=== PATIENT | female | born 1985 | race African-American/Black ===

== ENCOUNTER 2016-10-28 21:35 | Emergency (ER) | payer OTHER ==
[~2016-10-28] VITALS: Ht 162.6 cm; Wt 74.8 kg
[~2016-10-28 21:35] MED LIST: HYDROCODON-ACE1 EA15 ORAL; IBUPROFEN400 MG ORAL; NEXAFED30 MG ORAL; NORCO 5-325 TA1 EACH ORAL; OCUFLOX5 ML OP; ZOFRAN ODT4 MG ORAL
--- NOTE | 2016-10-28 22:07 | Emergency Room Report ---
History of Present Illness General Chief Complaint: Abdominal Pain Source: Patient Present Illness HPI Is a 31-year-old female with a history also of colitis. She's is on sulfa drops for it. She presents with chief complaint abdominal bloating and vomiting. Onset today. Has pain localized the left flank. Denies any fever or chills. This occur after she try to eat some piece and it got stuck in her throat. She able to pull it out. She try drink a medicine and had vomiting. Since then she's been able to tolerate fluid. No diarrhea. No fever. Seen at the office and had blood work done. Did not see her doctor. No other complaint. Pain is 5/10. No urinary complaint. Allergies: Coded Allergies: No Known Allergies (Unverified , 07/23/16) Patient History Past Medical History: see triage record, old chart reviewed Past Surgical History: other Pertinent Family History: none Social History: Denies: smoking Last Menstrual Period: sep 30, 2016 Now: No Immunizations: other Reviewed Nursing Documentation: PMH: Agreed, PSxH: Agreed Nursing Documentation-PMH Past Medical History: No History, Except For Hx Gastrointestinal Problems: Yes - ulcerative colitis Review of Systems Eye: Denies: blurred vision, eye pain ENT: Denies: ear pain, nose congestion, throat swelling Respiratory: Denies: cough, shortness of breath Cardiovascular: Denies: chest pain, palpitations Gastrointestinal: Reports: abdominal pain, nausea, vomiting, Denies: diarrhea Musculoskeletal: Denies: back pain, joint pain Skin: Denies: rash Neurological: Denies: headache, numbness Endocrine: Denies: increased thirst, increased urine Hematologic/Lymphatic: Denies: easy bruising All Other Systems: negative except mentioned in HPI Physical Exam Vital Signs Date Time Temp Pulse Resp B/P Pulse Ox O2 Delivery O2 Flow Rate FiO2 10/28/16 21:40 98.2 83 15 128/91 98 Room Air vitals normal Sp02 EP Interpretation: reviewed, normal General Appearance: well appearing, no apparent distress, alert Head: normocephalic, atraumatic Eyes: bilateral eye EOMI, bilateral eye PERRL ENT: hearing grossly normal, normal pharynx Neck: full range of motion, supple, no meningismus Respiratory: chest non-tender, lungs clear, normal breath sounds Cardiovascular #1: regular rate, rhythm, no murmur Gastrointestinal: normal bowel sounds, non tender, no mass, no organomegaly, no bruit, non-distended Musculoskeletal: back normal, gait/station normal, normal range of motion Psychiatric: mood/affect normal Skin: warm/dry Medical Decision Making Diagnostic Impression: Primary Impression: Abdominal pain Qualified Codes: R10.32 - Left lower quadrant pain Additional Impression: Vomiting Qualified Codes: R11.2 - Nausea with vomiting, unspecified ER Course Present with abdominal pain. CT scan unremarkable. No evidence of infection. No evidence of UTI. No acute abdomen. Patient felt better now. We'll discharge home. CT/MRI/US Diagnostic Results CT/MRI/US Diagnostic Results : Imaging Test Ordered: CT abdomen and pelvis Impression Read by radiologist. No acute process. Last Vital Signs Date Time Temp Pulse Resp B/P Pulse Ox O2 Delivery O2 Flow Rate FiO2 10/28/16 21:40 98.2 83 15 128/91 98 Room Air Status: improved Disposition: HOME, SELF-CARE Condition: Stable Scripts Ondansetron (Zofran) 4 Mg Tablet 4 MG ORAL Q6H Y for Nausea & Vomiting, #20 TAB 0 Refills Prov: SALVADOR TEMPLETON M.D. 10/28/16 Referrals: Maddie DAMICO,REFERRING (PCP) Patient Instructions: Abdominal Pain, Adult Additional Instructions: Followup with your DrDanny in 7 days. Return if worse. SALVADOR TEMPLETON M.D. Oct 28, 2016 22:07
[2016-10-28 22:25] LABS: APPEARANCE,URINE CLEAR; KETONES,URINE NEGATIVE (NEGATIVE); LEUKOCYTE ESTERASE ,URINE NEGATIVE (NEGATIVE); NITRITE,URINE NEGATIVE (NEGATIVE); PH,URINE 6 (4.5-8.0); PROTEIN,URINE NEGATIVE (NEGATIVE); UROBILINOGEN,URINE NORMAL MG/DL (0.0-1.0)
[2016-10-28 22:34] LABS: BACTERIA,URINE FEW /HPF; SQUAMOUS EPITHELIAL CELL,UR FEW /LPF (NONE/OCC); WBC,URINE 0-2 /HPF (0 - 2)
[2016-10-28] MEDS ORDERED: ZOFRAN4 MG ORAL (23:12)
[2016-10-28 23:20] VITALS: BP_SYST 116; BP_SYST 128; BP_DIAS 78; BP_DIAS 91
--- NOTE | 2016-10-29 09:12 | Diagnostic Imaging Report ---
Indication: Abdominal pain, history of ulcerative colitis, nausea, vomiting, diarrhea Technique: Spiral acquisitions obtained through the abdomen and pelvis. No oral contrast utilized, per emergency room physician request No IV contrast utilized, per referring physician request.. Multiplanar reconstructions were generated. Total dose length product 895 mGycm. CTDIvol(s) 17 mGy Comparison: None Findings: Normal appendix. No evidence of diverticulosis or diverticulitis. No small bowel distention. No free or loculated intraperitoneal air or fluid. Distal esophagus, stomach, duodenum are unremarkable. There is a tiny umbilical hernia which contain only fat, and adjacent small ventral hernia which also contains only fat Lack of IV contrast limits assessment of the solid organs. The gallbladder is nondistended. The bilateral unremarkable. The liver, pancreas, spleen, adrenals, kidneys are all unremarkable. There is an accessory splenule incidentally noted. Abundant prominent lymph nodes are seen throughout the mesentery. No retroperitoneal mass or adenopathy. No pelvic mass or adenopathy. The included lung bases are clear. The bones are unremarkable except for degenerative changes of bilateral sacroiliac joints. Impression: Nonspecific prominent mesenteric lymph nodes Incidental finding of small fat-containing ventral and umbilical hernias Minimal bilateral sacroiliac degenerative change No acute process This agrees with the preliminary interpretation provided overnight by [facility] service. The CT scanner at [facility] is accredited by the [employer] and the scans are performed using protocols designed to limit radiation exposure to as low as reasonably achievable to attain images of sufficient resolution adequate for diagnostic evaluation.
== END 2016-10-28 23:20 | disposition home or self-care (01) ==
LOC: EMR 21:56
DX: R10.32 Left lower quadrant pain (principal); R11.2 Nausea with vomiting, unspecified; Z87.19 Personal history of other diseases of the digestive system
CPT/HCPCS: 74176; 81003; 81025; 99284

== ENCOUNTER 2016-11-17 22:34 | Emergency (ER) | payer SELFPAY ==
[~2016-11-17] VITALS: Ht 170.2 cm; Wt 93.0 kg
[~2016-11-17 22:34] MED LIST changes: +ZOFRAN4 MG ORAL
[2016-11-17 23:00] VITALS: BP 144/90
[2016-11-17] MEDS ORDERED: FLONASE ALLERG9.9 ML NS (23:14)
[2016-11-17] MEDS ORDERED: ALBUTEROL SULF8.5 GM INH (23:14)
--- NOTE | 2016-11-17 23:14 | Emergency Room Report ---
History of Present Illness General Chief Complaint: Upper Respiratory Illness Source: Patient Present Illness HPI This is a 31-year-old female with a history ulcerative colitis. She presents with chief complaint of puncture of breath and congested. Onset for last to 3 weeks. Denies any fever chills denies any nausea vomiting. Worse with talking. Worse with lying flat. No chest pain. No nausea no vomiting. She is very congested. [id number]-mvo-utifolv medicine not helping. No other complaint. Allergies: Coded Allergies: No Known Allergies (Unverified , 07/23/16) Patient History Past Medical History: see triage record, old chart reviewed Past Surgical History: other Pertinent Family History: none Social History: Denies: smoking Last Menstrual Period: Oct Now: No Immunizations: other Reviewed Nursing Documentation: PMH: Agreed, PSxH: Agreed Nursing Documentation-PMH Hx Gastrointestinal Problems: Yes - ulcerative colitis Review of Systems Eye: Denies: blurred vision, eye pain ENT: Denies: ear pain, nose congestion, throat swelling Respiratory: Reports: cough, shortness of breath Cardiovascular: Denies: chest pain, palpitations Gastrointestinal: Denies: abdominal pain, diarrhea, nausea, vomiting Musculoskeletal: Denies: back pain, joint pain Skin: Denies: rash Neurological: Denies: headache, numbness Endocrine: Denies: increased thirst, increased urine Hematologic/Lymphatic: Denies: easy bruising All Other Systems: negative except mentioned in HPI Physical Exam Vital Signs Date Time Temp Pulse Resp B/P Pulse Ox O2 Delivery O2 Flow Rate FiO2 11/17/16 22:52 98.6 78 18 144/90 99 Room Air vitals with htn Sp02 EP Interpretation: reviewed, normal General Appearance: well appearing, no apparent distress, alert Head: normocephalic, atraumatic Eyes: bilateral eye EOMI, bilateral eye PERRL ENT: hearing grossly normal, normal pharynx, nasal congestion Neck: full range of motion, supple, no meningismus Respiratory: chest non-tender, lungs clear, normal breath sounds Cardiovascular #1: regular rate, rhythm, no murmur Gastrointestinal: normal bowel sounds, non tender, no mass, no organomegaly, no bruit, non-distended Musculoskeletal: back normal, gait/station normal, normal range of motion Neurologic: alert, oriented x3 Psychiatric: mood/affect normal Skin: warm/dry Medical Decision Making Diagnostic Impression: Primary Impression: Upper respiratory symptom Additional Impression: Rhinitis Qualified Codes: J31.0 - Chronic rhinitis ER Course Patient presents with upper respiratory infection with congestion. This could be allergy mediated. Most likely viral. I see no evidence of ACS, PE, dissection. She's comfortable otherwise. Could be sleep apnea. We'll discharge home. Chest X-Ray Diagnostic Results EP Interpretation: Yes Findings: no consolidation, no effusion, no pneumothorax, no acute cardiopulmonary disease Number of Views: 1 Last Vital Signs Date Time Temp Pulse Resp B/P Pulse Ox O2 Delivery O2 Flow Rate FiO2 11/17/16 22:52 98.6 78 18 144/90 99 Room Air Status: improved Disposition: HOME, SELF-CARE Condition: Stable Scripts Fluticasone Propionate (Flonase Allergy Relief) 9.9 Ml Girdler.susp 9.9 ML NS BID, #1 UNIT Prov: SALVADOR TEMPLETON M.D. 11/17/16 Albuterol Sulfate* (ALBUTEROL SULFATE MDI*) 8.5 Gm Hfa.aer.ad 2 PUFF INH Q4H Y for cough/wheezing, #1 EA 0 Refills Prov: SALVADOR TEMPLETON M.D. 11/17/16 Referrals: Maddie DAMICO,REFERRING (PCP) Patient Instructions: Upper Respiratory Infection, Adult Additional Instructions: Followup with your DrDanny in 2-3 days. Return if symptom worsen. SALVADOR TEMPLETON M.D. Nov 17, 2016 23:14
[2016-11-17 23:30] VITALS: BP 148/95
--- NOTE | 2016-11-18 13:46 | Diagnostic Imaging Report ---
Indication: SOB Technique: One view of the chest Comparison: none Findings: Lungs and pleural spaces are clear. Heart size is normal. Impression: No acute process
== END 2016-11-17 23:30 | disposition home or self-care (01) ==
LOC: EMR 23:05
DX: J06.9 Acute upper respiratory infection, unspecified (principal); J31.0 Chronic rhinitis
CPT/HCPCS: 71010; 99284

== ENCOUNTER 2017-01-23 13:43 | Emergency (ER) | payer SELFPAY ==
[~2017-01-23] VITALS: Ht 170.2 cm; Wt 93.0 kg
[~2017-01-23 13:43] MED LIST changes: +ALBUTEROL SULF8.5 GM INH; +FLONASE ALLERG9.9 ML NS
[2017-01-23 13:47] VITALS: BP 126/87
--- NOTE | 2017-01-23 14:19 | Emergency Room Report ---
History of Present Illness General Chief Complaint: Abdominal Pain Source: Patient Present Illness HPI 31 y/o female c/o periumbilical pain x 1 day. States pain is 7/10 and worse with movement. Assoc sxs include bloating that improves with passing gas. Patient has hx of ulcerative colitis with colonic polyps with last colonoscopy being 3 years ago and abnormal (polyps removed). Is supposed to be taking sulfasalazine but states she doesn't like it so she doesn't take it. Last BM was 1 hour ago. States she normally has 5x BM daily. States she took APAP earlier with mild relief. Denies food as a modifying factor. States she has poor compliance with dietary considerations with her colitis as she is drinking her [employer]bucks coffee stating she drinks caffeine and has unmonitored uncontrolled diet. States 2 weeks ago she had an episode of GI bleeding for 1 day that resolved. Denies any current n/v/f/c/d, dysuria, back pain, neck pain , photophobia, phonophobia, CP, SOB or headache. Additionally, patient complains of right shoulder muscular pain. States she had to lift her grandfather who was stuck in the garage at home. States she has right shoulder muscle tension that is worse with movement and better with heat, massage and rest. No other modifying factors or physical complaints. Patient denies any numbness, tingling, pressure, paralysis, cyanosis, bruising, loss of sensation, or loss of range of motion. Allergies: Coded Allergies: No Known Allergies (Unverified , 07/23/16) Patient History Past Medical History: see triage record Pertinent Family History: none Last Menstrual Period: 5-5 Now: No Immunizations: UTD Reviewed Nursing Documentation: PMH: Agreed, PSxH: Agreed Nursing Documentation-PMH Past Medical History: No History, Except For Hx Gastrointestinal Problems: Yes - ulcerative colitis Review of Systems All Other Systems: negative except mentioned in HPI Physical Exam Vital Signs Date Time Temp Pulse Resp B/P Pulse Ox O2 Delivery O2 Flow Rate FiO2 01/23/17 13:47 98.4 110 18 126/87 98 Room Air Medical Decision Making PA Attestation Dr. Castellano is my supervising physician with whom patient management has been discussed with. Diagnostic Impression: Primary Impression: Abdominal pain Qualified Codes: R10.33 - Periumbilical pain Additional Impressions: UTI (urinary tract infection) Qualified Codes: N30.00 - Acute cystitis without hematuria Right shoulder strain Qualified Codes: S46.911A - Strain of unspecified muscle, fascia and tendon at shoulder and upper arm level, right arm, initial encounter ER Course Pt. presents to the ED c/o abdominal pain. Ddx considered but are not limited to viral syndrome, , appendicitis, diverticulitis, constipation, gastroenteritis, abdominal hernia, pancreatitis, cholecystitis, nephrolithiasis, and ovarian torsion. Vital signs: are WNL, pt. is afebrile H&PE are most consistent with non-specific abd pain with UTI and Right shoulder strain ORDERS: CBC, CMP, UA, Preg, XR Abd, Lipase ED INTERVENTIONS: none required at this time. DISCHARGE: At this time pt. is stable for d/c to home. Will provide printed patient care instructions, and any necessary prescriptions. Care plan and follow up instructions have been discussed with the patient prior to discharge. Laboratory Tests Test 01/23/17 14:25 White Blood Count 4.8 K/UL (4.8-10.8) Red Blood Count 4.91 M/UL (4.20-5.40) Hemoglobin 12.2 G/DL (12.0-16.0) Hematocrit 39.2 % (37.0-47.0) Mean Corpuscular Volume 80 FL (80-99) Mean Corpuscular Hemoglobin 24.8 PG (27.0-31.0) L Mean Corpuscular Hemoglobin Concent 31.1 G/DL (32.0-36.0) L Red Cell Distribution Width 13.3 % (11.6-14.8) Platelet Count 367 K/UL (150-450) Mean Platelet Volume 6.3 FL (6.5-10.1) L Neutrophils (%) (Auto) 35.6 % (45.0-75.0) L Lymphocytes (%) (Auto) 48.7 % (20.0-45.0) H Monocytes (%) (Auto) 11.8 % (1.0-10.0) H Eosinophils (%) (Auto) 2.3 % (0.0-3.0) Basophils (%) (Auto) 1.6 % (0.0-2.0) Urine Color Yellow Urine Appearance Slightly cloudy Urine pH 6.5 (4.5-8.0) Urine Specific [place] 1.010 (1.005-1.035) Urine Protein Negative (NEGATIVE) Urine Glucose (UA) Negative (NEGATIVE) Urine Ketones Negative (NEGATIVE) Urine Occult Blood 1+ (NEGATIVE) H Urine Nitrite Negative (NEGATIVE) Urine Bilirubin Negative (NEGATIVE) Urine Urobilinogen Normal MG/DL (0.0-1.0) Urine Leukocyte Esterase 1+ (NEGATIVE) H Urine RBC 2-4 /HPF (0 - 2) H Urine WBC 5-10 /HPF (0 - 2) H Urine Squamous Epithelial Cells Many /LPF (NONE/OCC) H Urine Bacteria Moderate /HPF (NONE) H Urine HCG, Qualitative Negative Sodium Level 137 mEQ/L (135-145) Potassium Level 4.3 mEQ/L (3.4-4.9) Chloride Level 97 mEQ/L (98-107) L Carbon Dioxide Level 24 mEQ/L (20-30) Anion Gap 16 (5-15) H Blood Urea Nitrogen 7 mg/dL (7-23) Creatinine 0.7 mg/dL (0.5-0.9) Estimate Glomerular Filtration Rate > 60 mL/min (>60) Glucose Level 99 mg/dL (74-106) Calcium Level 9.3 mg/dL (8.6-10.2) Total Bilirubin 0.3 mg/dL (0.0-1.2) Aspartate Amino Transferase (AST) 20 U/L (5-40) Alanine Aminotransferase (ALT) 15 U/L (3-33) Alkaline Phosphatase 73 U/L (35-104) Total Protein 7.7 g/dL (6.6-8.7) Albumin 3.9 g/dL (3.5-5.2) Globulin 3.8 g/dL Albumin/Globulin Ratio 1.0 (1.0-2.7) Lipase 22 U/L (< 60) Other X-Ray Diagnostic Results Other X-Ray Diagnostic Results : X-Ray Ordered: XR Abd Date: January 23, 2017 EP Interpretation: Yes Number of Views: 3 Other Impression No acute abnormality. Non-specific bowel gas pattern. No free air noted. Last Vital Signs Date Time Temp Pulse Resp B/P Pulse Ox O2 Delivery O2 Flow Rate FiO2 01/23/17 16:01 98.4 110 18 126/87 98 Room Air Disposition: HOME, SELF-CARE Condition: Stable Scripts Methocarbamol* (METHOCARBAMOL*) 750 Mg Tablet 750 MG ORAL THREE TIMES A DAY Y for For Pain, #30 TAB Prov: MARY ARTEAGA.A. 01/23/17 Metronidazole* (FLAGYL*) 500 Mg Tablet 500 MG ORAL THREE TIMES A DAY, #15 TAB 0 Refills Prov: MARY ARTEAGA P.A. 01/23/17 Ciprofloxacin Hcl* (CIPROFLOXACIN HCL*) 500 Mg Tablet 500 MG ORAL EVERY 12 HOURS for 5 Days, #10 TAB 0 Refills Prov: MARY ARTEAGA P.A. 01/23/17 Patient Instructions: Abdominal Pain, Adult, Generic Shoulder Exercises- SportsMed, Urinary Tract Infection Additional Instructions: Take medication as directed. Patient instructed to stay well hydrated and to use a liquid diet and then progress to soft bland diet as tolerated before reverting back to a regular diet. Patient Education was given to the patient. Patient advised if irreretractible pain, rectal bleeding, or no BM to go to ER immediately. Advised patient to use RICE therapy and avoid exercises for the next 2-3 weeks to help rest the leg. Patient instructed to massage the muscles that are tight or tense, put ice for 5-7 minutes or a frozen bag of peas or cold gel pack on the area for 20 minutes at a time, a few times a day, put heat on the area to reduce pain and stiffness by either taking a hot shower or hot bath, or put a hot towel on the area for no more than 20 minutes at a time. Patient instructed to not use anything too hot that could burn your skin. MARY ARTEAGA January 23, 2017 14:19
[2017-01-23 14:47] LABS: BASOPHILS % (AUTO) 1.6 % (0.0-2.0); EOSINOPHILS % (AUTO) 2.3 % (0.0-3.0); LYMPHOCYTES % (AUTO) 48.7 % (20.0-45.0); MEAN CORPUSCULAR HEMOGLOBIN 24.8 PG (27.0-31.0); MEAN CORPUSCULAR HGB CONC 31.1 G/DL (32.0-36.0); MEAN CORPUSCULAR VOLUME 80 FL (80-99); MEAN PLATELET VOLUME 6.3 FL (6.5-10.1); MONOCYTES % (AUTO) 11.8 % (1.0-10.0); NEUTROPHILS % (AUTO) 35.6 % (45.0-75.0); PLATELET COUNT 367 K/UL (150-450); RED BLOOD COUNT 4.91 M/UL (4.20-5.40); RED CELL DISTRIBUTION WIDTH 13.3 % (11.6-14.8); WHITE BLOOD COUNT 4.8 K/UL (4.8-10.8)
[2017-01-23 14:51] LABS: KETONES,URINE NEGATIVE (NEGATIVE); LEUKOCYTE ESTERASE ,URINE 1+ (NEGATIVE); NITRITE,URINE NEGATIVE (NEGATIVE); PH,URINE 6.5 (4.5-8.0); PROTEIN,URINE NEGATIVE (NEGATIVE); UROBILINOGEN,URINE NORMAL MG/DL (0.0-1.0)
[2017-01-23 15:09] LABS: APPEARANCE,URINE SLIGHTLY CLOUDY; BACTERIA,URINE MODERATE /HPF; SQUAMOUS EPITHELIAL CELL,UR MANY /LPF (NONE/OCC)
[2017-01-23 15:11] LABS: ALANINE AMINOTRANSFERASE 15 U/L (3-33); ANION GAP 16 (5-15); ASPARTATE AMINO TRANSFERASE 20 U/L (5-40); CALCIUM 9.3 mg/dL (8.6-10.2); CARBON DIOXIDE 24 mEQ/L (20-30); CHLORIDE 97 mEQ/L (98-107); CREATININE 0.7 mg/dL (0.5-0.9); GLOMERULAR FILTRATION RATE > 60 mL/min (>60); HEMOLYSIS 28; LIPASE 22 U/L (< 60); POTASSIUM 4.3 mEQ/L (3.4-4.9); SODIUM 137 mEQ/L (135-145); TOTAL PROTEIN 7.7 g/dL (6.6-8.7)
[2017-01-23 15:12] LABS: BACTERIA,URINE MODERATE /HPF; SQUAMOUS EPITHELIAL CELL,UR MANY /LPF (NONE/OCC)
[2017-01-23] MEDS ORDERED: METHOCARBAMOL750 MG ORAL (15:41)
[2017-01-23] MEDS ORDERED: CIPROFLOXACIN500 M2 ORAL (15:41)
[2017-01-23] MEDS ORDERED: METRONIDAZOLE500 MG ORAL (15:41)
[2017-01-23 16:01] VITALS: BP 126/87
--- NOTE | 2017-01-24 11:06 | Diagnostic Imaging Report ---
Indication: Abdominal pain Comparison: None Single view of the abdomen obtained Findings: Bowel gas pattern is nonspecific. There is contrast within the colon and small bowel presumably for CT. The bones are unremarkable. No ectopic calcifications of concern identified. Impression: No acute findings.
== END 2017-01-23 16:01 | disposition home or self-care (01) ==
LOC: EMR 14:20
DX: R10.33 Periumbilical pain (principal); N30.00 Acute cystitis without hematuria; S46.911A Strain of unspecified muscle, fascia and tendon at shoulder and upper arm level, right arm, initial encounter; Z86.010 Personal history of colon polyps; X50.0XXA Overexertion from strenuous movement or load, initial encounter; Y93.9 Activity, unspecified; Y92.9 Unspecified place or not applicable
CPT/HCPCS: 36415; 74020; 80053; 81003; 81025; 83690; 85025; 87086; 99284

== ENCOUNTER 2017-02-21 20:54 | Emergency (ER) | payer SELFPAY ==
[~2017-02-21] VITALS: Ht 170.2 cm; Wt 88.5 kg
[~2017-02-21 20:54] MED LIST changes: +CIPROFLOXACIN500 M2 ORAL; +METHOCARBAMOL750 MG ORAL; +METRONIDAZOLE500 MG ORAL
[2017-02-21 21:25] VITALS: BP 123/87
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
[2017-02-21] MEDS ORDERED: IBUPROFEN600 MG ORAL (21:50)
[2017-02-21 21:57] VITALS: BP 123/87
== END 2017-02-21 21:57 | disposition home or self-care (01) ==
LOC: EMR 21:30
DX: M79.605 Pain in left leg (principal); M25.562 Pain in left knee; M25.512 Pain in left shoulder
CPT/HCPCS: 99283

== ENCOUNTER 2017-04-15 16:41 | Emergency (ER) | payer OTHER ==
[~2017-04-15] VITALS: Ht 170.2 cm; Wt 93.0 kg
[~2017-04-15 16:41] MED LIST changes: +IBUPROFEN600 MG ORAL
[2017-04-15] MEDS ORDERED: BACITRACIN ZIN1 EACH TOPIC (16:59)
[2017-04-15] MEDS ORDERED: Bacitracin Oint UD TOPIC ONE (17:00)
[2017-04-15 17:39] VITALS: BP 134/85
[2017-04-15 17:42] VITALS: BP 134/85
--- NOTE | 2017-04-15 21:57 | Emergency Room Report ---
History of Present Illness General Chief Complaint: Skin Rash/Abscess Source: Patient Present Illness HPI Patient is a 31-year-old female who presented after having increased pain to the jerome cleft area. The patient had prior history of ulcer colitis. She been taking oral medications for that. The patient reported having increased pain to the buttock area. She denied any fever. She denied any bloody stools. Allergies: Coded Allergies: No Known Allergies (Unverified , 02/21/17) Patient History Past Medical History: see triage record Last Menstrual Period: 7-13 Now: No Reviewed Nursing Documentation: PMH: Agreed, PSxH: Agreed Nursing Documentation-PMH Past Medical History: No History, Except For Hx Gastrointestinal Problems: Yes - ulcerative colitis Review of Systems All Other Systems: negative except mentioned in HPI Physical Exam Vital Signs Date Time Temp Pulse Resp B/P Pulse Ox O2 Delivery O2 Flow Rate FiO2 04/15/17 16:43 98.1 79 18 134/85 98 Room Air Sp02 EP Interpretation: reviewed, normal General Appearance: normal inspection, well appearing, no apparent distress, alert, GCS 15 Head: atraumatic ENT: normal ENT inspection, hearing grossly normal, normal voice Neck: normal inspection, full range of motion, supple, no bony tend Respiratory: normal inspection, lungs clear, normal breath sounds, no respiratory distress, no retraction, no wheezing Cardiovascular #1: regular rate, rhythm, no edema Gastrointestinal: normal inspection, normal bowel sounds, non tender, soft, no guarding, no hernia Genitourinary: no CVA tenderness Musculoskeletal: normal inspection, back normal, normal range of motion Neurologic: normal inspection, alert, oriented x3, responsive, pc tech III-XII nml as tested, speech normal Psychiatric: normal inspection, judgement/insight normal, mood/affect normal Skin: normal inspection, normal color, no rash Medical Decision Making Diagnostic Impression: Primary Impression: Skin ulcer ER Course Patient presented for skin ulcer. Differential diagnosis included wasn't limited to abrasion, contusion, contact dermatitis, pilonidal cyst, among others. Patient's benign exam and does not appear to require any further imaging or laboratory testing at this time. The patient is advised to follow up with primary care doctor in 1-2 days. Patient is advised to return if any worsening condition or if any changes in status that are concerning. Last Vital Signs Date Time Temp Pulse Resp B/P Pulse Ox O2 Delivery O2 Flow Rate FiO2 04/15/17 17:42 98.1 69 18 134/85 98 Room Air Status: improved Disposition: HOME, SELF-CARE Condition: Stable Scripts Bacitracin Zinc* (BACITRACIN ZINC*) 1 Each Packet 1 APPLIC TOPIC THREE TIMES A DAY, #20 PACKET Prov: Carrington Decker 04/15/17 Referrals: NON PHYSICIAN (PCP) Patient Instructions: Skin Ulcer Carrington Decker Apr 15, 2017 21:57
== END 2017-04-15 17:43 | disposition home or self-care (01) ==
LOC: EMR 17:11
DX: L98.419 Non-pressure chronic ulcer of buttock with unspecified severity (principal)
CPT/HCPCS: 99283

== ENCOUNTER 2017-04-27 21:00 | Emergency (ER) | payer SELFPAY ==
[~2017-04-27] VITALS: Ht 170.2 cm; Wt 93.0 kg
[~2017-04-27 21:00] MED LIST changes: +BACITRACIN ZIN1 EACH TOPIC
[2017-04-27] MEDS ORDERED: SULFASALAZINE500 MG ORAL (21:13)
[2017-04-27] MEDS ORDERED: Solu-MEDROL 125mg Inj IVP ONE (21:30)
[2017-04-27] MEDS ORDERED: Famotidine 20 MG/ 2ML VIAL IVP ONE (21:30)
--- NOTE | 2017-04-27 21:31 | Emergency Room Report ---
History of Present Illness General Chief Complaint: Diarrhea Source: Patient Present Illness HPI Patient presents with 5 days of nausea vomiting. Today she has some dizziness. Yesterday she passed some black stool. She has a history of ulcerative colitis. The stools are loose and now brown in color. The dizziness is more feeling that she's weak and about to pass out. It was worse today. In addition she has left ear pain and a slight sore throat. There is no cough or chest pain. Her last period was on the and normal. No fevers or chills. She's had black stools when she's had bleeding in the past. It's been quite a while since her ulcerative colitis was active. It's usually treated with steroids. She has rheumatoid arthritis. She was seen here 04/15 for possible skin ulcer. Prescribed local treatment. Not complaining of this at this time. Allergies: Coded Allergies: No Known Allergies (Unverified , 02/21/17) Patient History Past Medical History: see triage record Social History Narrative she drove herself here Last Menstrual Period: 04/01/17 Now: No : 1 Para: 0 Reviewed Nursing Documentation: PMH: Agreed, PSxH: Agreed Nursing Documentation-PMH Hx Gastrointestinal Problems: Yes - ulcerative colitis Review of Systems All Other Systems: negative except mentioned in HPI Physical Exam Vital Signs Date Time Temp Pulse Resp B/P Pulse Ox O2 Delivery O2 Flow Rate FiO2 04/27/17 21:09 99.0 78 14 127/82 98 Room Air Sp02 EP Interpretation: reviewed, normal General Appearance: well appearing, no apparent distress, GCS 15 Head: normocephalic Eyes: bilateral eye normal inspection ENT: moist mucus membranes Neck: supple Respiratory: lungs clear, normal breath sounds Cardiovascular #1: regular rate, rhythm Cardiovascular #2: 2+ radial (R) Gastrointestinal: normal inspection, normal bowel sounds, no mass, non- distended, no guarding, no rebound, tenderness - minimal epigastric Musculoskeletal: back normal, gait/station normal, normal range of motion Neurologic: alert, oriented x3, grossly normal Psychiatric: mood/affect normal Skin: normal inspection, warm/dry Medical Decision Making Diagnostic Impression: Primary Impression: Vomiting Qualified Codes: R11.2 - Nausea with vomiting, unspecified Additional Impressions: Abdominal pain Qualified Codes: R10.13 - Epigastric pain Viral syndrome History of ulcerative colitis ER Course Patient presents with abdominal discomfort dizziness upper respiratory symptoms and vomiting with some black stool yesterday. Differential includes ulcerative colitis, gastroenteritis, viral syndrome diverticulitis amongst others. The abdomen is fairly soft at this time. Evaluation will be with labs, urinalysis, urine . Also abdominal films will be taken. The patient will receive IV hydration, Zofran and Pepcid. In addition because of the possibility is being related to ulcerative colitis methylprednisolone will be used. This might also help with the feelings in her upper respiratory tract infection. Patient labs are unremarkable. She still feels burning in her epigastric and also up in her throat. Is also causing nausea. Reglan, Benadryl and Mylanta given. Patient feels much better after the last medication. I discussed with her about whether she felt that she should be on prednisone at this time. She felt this was not indicated. She wants symptomatic treatment. Also she states she wants to follow up with her doctor. Patient stable for outpatient observation and treatment. Laboratory Tests Test 04/27/17 21:49 04/27/17 23:10 White Blood Count 6.5 K/UL (4.8-10.8) Red Blood Count 4.44 M/UL (4.20-5.40) Hemoglobin 11.8 G/DL (12.0-16.0) L Hematocrit 36.6 % (37.0-47.0) L Mean Corpuscular Volume 82 FL (80-99) Mean Corpuscular Hemoglobin 26.5 PG (27.0-31.0) L Mean Corpuscular Hemoglobin Concent 32.1 G/DL (32.0-36.0) Red Cell Distribution Width 13.5 % (11.6-14.8) Platelet Count 332 K/UL (150-450) Mean Platelet Volume 6.2 FL (6.5-10.1) L Neutrophils (%) (Auto) 47.5 % (45.0-75.0) Lymphocytes (%) (Auto) 42.4 % (20.0-45.0) Monocytes (%) (Auto) 6.7 % (1.0-10.0) Eosinophils (%) (Auto) 1.1 % (0.0-3.0) Basophils (%) (Auto) 2.3 % (0.0-2.0) H Prothrombin Time 10.2 SEC (9.30-11.50) Prothrombin Time INR 1.0 (0.9-1.1) PTT 27 SEC (23-33) Sodium Level 138 mEQ/L (135-145) Potassium Level 3.8 mEQ/L (3.4-4.9) Chloride Level 100 mEQ/L (98-107) Carbon Dioxide Level 26 mEQ/L (20-30) Anion Gap 12 (5-15) Blood Urea Nitrogen 8 mg/dL (7-23) Creatinine 0.8 mg/dL (0.5-0.9) Estimate Glomerular Filtration Rate > 60 mL/min (>60) Glucose Level 105 mg/dL (74-106) Calcium Level 11.3 mg/dL (8.6-10.2) H Total Bilirubin 0.2 mg/dL (0.0-1.2) Aspartate Amino Transferase (AST) 14 U/L (5-40) Alanine Aminotransferase (ALT) 12 U/L (3-33) Alkaline Phosphatase 73 U/L (35-104) Total Protein 7.8 g/dL (6.6-8.7) Albumin 4.3 g/dL (3.5-5.2) Globulin 3.5 g/dL Albumin/Globulin Ratio 1.2 (1.0-2.7) Lipase 18 U/L (< 60) Urine Color Yellow Urine Appearance Clear Urine pH 6 (4.5-8.0) Urine Specific Harrells 1.020 (1.005-1.035) Urine Protein Negative (NEGATIVE) Urine Glucose (UA) Negative (NEGATIVE) Urine Ketones 1+ (NEGATIVE) H Urine Occult Blood 2+ (NEGATIVE) H Urine Nitrite Negative (NEGATIVE) Urine Bilirubin Negative (NEGATIVE) Urine Urobilinogen 1 MG/DL (0.0-1.0) H Urine Leukocyte Esterase 1+ (NEGATIVE) H Urine RBC 2-4 /HPF (0 - 2) H Urine WBC 0-2 /HPF (0 - 2) Urine Squamous Epithelial Cells Moderate /LPF (NONE/OCC) H Urine Bacteria None /HPF (NONE) Urine HCG, Qualitative Negative Other X-Ray Diagnostic Results Other X-Ray Diagnostic Results : X-Ray ordered: abd # of Views/Limited Vs Complete: 1 View Indication: Pain EP Interpretation: Yes Interpretation: nonspecific bowel gas, no sbo, other - no masses Impression: No acute disease Interpreting ER Provider: signed Jarad Ferris MD Last Vital Signs Date Time Temp Pulse Resp B/P Pulse Ox O2 Delivery O2 Flow Rate FiO2 04/28/17 01:46 60 18 120/80 100 Room Air 04/28/17 01:46 98.9 Status: improved Disposition: HOME, SELF-CARE Condition: Improved Scripts Famotidine (PEPCID) 20 Mg Tablet 20 MG ORAL DAILY, #20 TAB 1 Refill Prov: Jarad Ferris M.D. 04/28/17 Ondansetron Odt* (ZOFRAN ODT*) 4 Mg Tab.rapdis 4 MG ORAL Q8H Y for Nausea & Vomiting, #6 TAB 1 Refill Prov: Jarad Ferris M.D. 04/28/17 Jarad Ferris M.D. Apr 27, 2017 21:31
[2017-04-27 22:22] LABS: BASOPHILS % (AUTO) 2.3 % (0.0-2.0); EOSINOPHILS % (AUTO) 1.1 % (0.0-3.0); LYMPHOCYTES % (AUTO) 42.4 % (20.0-45.0); MEAN CORPUSCULAR HEMOGLOBIN 26.5 PG (27.0-31.0); MEAN CORPUSCULAR HGB CONC 32.1 G/DL (32.0-36.0); MEAN CORPUSCULAR VOLUME 82 FL (80-99); MEAN PLATELET VOLUME 6.2 FL (6.5-10.1); MONOCYTES % (AUTO) 6.7 % (1.0-10.0); NEUTROPHILS % (AUTO) 47.5 % (45.0-75.0); PLATELET COUNT 332 K/UL (150-450); RED BLOOD COUNT 4.44 M/UL (4.20-5.40); RED CELL DISTRIBUTION WIDTH 13.5 % (11.6-14.8); WHITE BLOOD COUNT 6.5 K/UL (4.8-10.8)
[2017-04-27 22:32] LABS: ALANINE AMINOTRANSFERASE 12 U/L (3-33); ALBUMIN/GLOBULIN RATIO 1.2 (1.0-2.7); ANION GAP 12 (5-15); ASPARTATE AMINO TRANSFERASE 14 U/L (5-40); CALCIUM 11.3 mg/dL (8.6-10.2); CARBON DIOXIDE 26 mEQ/L (20-30); CHLORIDE 100 mEQ/L (98-107); CREATININE 0.8 mg/dL (0.5-0.9); GLOMERULAR FILTRATION RATE > 60 mL/min (>60); HEMOLYSIS 6; LIPASE 18 U/L (< 60); POTASSIUM 3.8 mEQ/L (3.4-4.9); PROTHROMBIN TIME 10.2 SEC (9.30-11.50); SODIUM 138 mEQ/L (135-145); TOTAL PROTEIN 7.8 g/dL (6.6-8.7)
[2017-04-27 23:20] LABS: APPEARANCE,URINE CLEAR; KETONES,URINE 1+ (NEGATIVE); LEUKOCYTE ESTERASE ,URINE 1+ (NEGATIVE); NITRITE,URINE NEGATIVE (NEGATIVE); PH,URINE 6 (4.5-8.0); PROTEIN,URINE NEGATIVE (NEGATIVE); UROBILINOGEN,URINE 1 MG/DL (0.0-1.0)
[2017-04-27 23:28] LABS: SQUAMOUS EPITHELIAL CELL,UR MODERATE /LPF (NONE/OCC); WBC,URINE 0-2 /HPF (0 - 2)
[2017-04-27 23:29] VITALS: BP 122/89
[2017-04-28] MEDS ORDERED: DiphenhydrAMINE 50mg/ml Inj IVP ONE (00:15)
[2017-04-28] MEDS ORDERED: Mylanta II UD 30ml ORAL ONE (00:15)
[2017-04-28] MEDS ORDERED: Metoclopramide 10mg/2ml Inj IVP ONE (00:15)
[2017-04-28] MEDS ORDERED: ZOFRAN ODT4 MG ORAL (01:10)
[2017-04-28] MEDS ORDERED: PEPCID20 MG ORAL (01:10)
[2017-04-28 01:46] VITALS: BP 120/80
--- NOTE | 2017-04-28 09:03 | Diagnostic Imaging Report ---
Indications: Abdominal pain. Technique: AP view of the abdomen Findings: Comparison: 01/23/17. Bowel gas pattern is unremarkable. No abnormal calcific or soft tissue densities are demonstrated. 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 Visualized skeletal structures are otherwise unremarkable. IMPRESSION: No evidence of acute abdominopelvic disease, unchanged Stable apparent chronic low changes as described. These may to some degree be artifactual due to positioning
== END 2017-04-28 01:49 | disposition home or self-care (01) ==
LOC: EMR 21:28
DX: R11.2 Nausea with vomiting, unspecified (principal); R10.9 Unspecified abdominal pain; R42 Dizziness and giddiness; Z87.19 Personal history of other diseases of the digestive system; M06.9 Rheumatoid arthritis, unspecified
CPT/HCPCS: 36415; 74000; 80053; 81003; 81025; 83690; 85025; 85610; 85730; 96360; 96361; 96374; 96375; 99284; J1200; J2405; J2765; J2930; S0028

== ENCOUNTER 2017-07-21 18:43 | Emergency (ER) | payer SELFPAY ==
[~2017-07-21] VITALS: Ht 170.2 cm; Wt 93.0 kg
[~2017-07-21 18:43] MED LIST changes: +PEPCID20 MG ORAL; +SULFASALAZINE500 MG ORAL
[2017-07-21 19:07] VITALS: BP 126/87
[2017-07-21] MEDS ORDERED: AMOXICILLIN500 MG ORAL (19:34)
[2017-07-21] MEDS ORDERED: PREDNISONE20 MG ORAL (19:34)
[2017-07-21] MEDS ORDERED: PROMETHAZI6.25 MG/1 ORAL (19:34)
[2017-07-21] MEDS ORDERED: IBUPROFEN600 MG ORAL (19:34)
[2017-07-21 19:40] VITALS: BP 126/87
--- NOTE | 2017-07-21 20:39 | Emergency Room Report ---
History of Present Illness General Chief Complaint: Flu Like Symptoms Source: Patient, Medical Record Present Illness HPI The patient is a 31-year-old female presenting for sore throat, subjective fevers, chills, and cough for the past 3 days. She was seen by her primary doctor Allergies: Coded Allergies: No Known Allergies (Unverified , 02/21/17) Patient History Past Medical History: see triage record Pertinent Family History: none Last Menstrual Period: 07/20/17 Reviewed Nursing Documentation: PMH: Agreed, PSxH: Agreed Nursing Documentation-PMH Past Medical History: No History, Except For Hx Gastrointestinal Problems: Yes - ulcerative colitis Review of Systems All Other Systems: negative except mentioned in HPI Physical Exam Vital Signs Date Time Temp Pulse Resp B/P (MAP) Pulse Ox O2 Delivery O2 Flow Rate FiO2 07/21/17 18:48 98.6 91 18 126/87 98 Room Air Sp02 EP Interpretation: reviewed, normal General Appearance: no apparent distress, alert, GCS 15, non-toxic Head: normocephalic, atraumatic Eyes: bilateral eye normal inspection, bilateral eye PERRL ENT: hearing grossly normal, uvula midline, tonsillar swelling, pharyngeal erythema Neck: full range of motion, supple/symm/no masses Respiratory: chest non-tender, lungs clear, normal breath sounds, speaking full sentences Musculoskeletal: back normal, gait/station normal, normal range of motion, non- tender Neurologic: alert, oriented x3, responsive, motor strength/tone normal, sensory intact, speech normal Psychiatric: judgement/insight normal, memory normal, mood/affect normal, no suicidal/homicidal ideation Skin: normal color, no rash, warm/dry, well hydrated Medical Decision Making PA Attestation Dr. Cunningham is my supervising physician. Patient management was discussed with my supervising physician Diagnostic Impression: Primary Impression: Pharyngitis, acute Qualified Codes: J02.9 - Acute pharyngitis, unspecified ER Course The patient is a 31-year-old female presenting for sore throat, cough, and chills Differential diagnosis include but not limited to pharyngitis, sinusitis, AOM, bronchitis, PNA Physical exam: Vitals within normal limits. Afebrile. No apparent distress HEENT exam: There is bilateral tonsillar edema, erythema. Uvula midline. Moist mucous membranes. There is bilateral cervical lymphadenopathy. Lungs are clear to auscultation bilaterally Skin is warm and dry. No rash The patient will be discharged home with a prescription for amoxicillin, prednisone, cough medication and is given ER precautions. Patient will followup with primary care Last Vital Signs Date Time Temp Pulse Resp B/P (MAP) Pulse Ox O2 Delivery O2 Flow Rate FiO2 07/21/17 19:40 98.6 91 18 126/87 98 Room Air Status: improved Disposition: HOME, SELF-CARE Condition: Improved Scripts Prednisone* (PREDNISONE*) 20 Mg Tablet 40 MG ORAL DAILY, #8 TAB Prov: REBECCA UREÑA P.A. 07/21/17 Ibuprofen* (MOTRIN*) 600 Mg Tablet 600 MG ORAL Q8H Y for For Pain, #30 TAB 0 Refills Prov: REBECCA UREÑA P.A. 07/21/17 Amoxicillin* (AMOXIL*) 500 Mg Capsule 500 MG ORAL Q12HR, #20 CAP Prov: TERZIREBECCA BEAVER P.A. 07/21/17 Promethazine Hcl (PROMETHAZINE HCL*) 6.25 Mg/5 Ml Syrup 5 ML ORAL Q8H, #120 ML 0 Refills Prov: REBECCA UREÑA P.A. 07/21/17 Referrals: NON PHYSICIAN (PCP) Patient Instructions: Pharyngitis Additional Instructions: I discussed my findings with the patient. All questions and concerns have been answered. Treatment and medication compliance have been addressed. I advised the patient that they need to follow up with PMD in 3-5 days. Return to ED if pain remains or worsens, cough worsens or remains, you notice blood in your sputum, you notice wheezing, you experience a fever, or if needed for any reason. Patient verbalized understanding of discharge instructions. REBECCA UREÑA Jul 21, 2017 20:39
== END 2017-07-21 19:40 | disposition home or self-care (01) ==
LOC: EMR 19:25
DX: J02.9 Acute pharyngitis, unspecified (principal); Z87.19 Personal history of other diseases of the digestive system
CPT/HCPCS: 99284

== ENCOUNTER 2017-08-30 20:25 | Emergency (ER) | payer OTHER ==
[~2017-08-30] VITALS: Ht 170.2 cm; Wt 89.8 kg
[~2017-08-30 20:25] MED LIST changes: +AMOXICILLIN500 MG ORAL; +PREDNISONE20 MG ORAL; +PROMETHAZI6.25 MG/1 ORAL
[2017-08-30 20:40] VITALS: BP 113/76
[2017-08-30] MEDS ORDERED: ZOFRAN4 MG ORAL (21:14)
[2017-08-30] MEDS ORDERED: PSEUDOEPHEDRINE60 MG PO (21:14)
[2017-08-30 21:15] VITALS: BP 113/76
--- NOTE | 2017-08-30 21:15 | Emergency Room Report ---
History of Present Illness General Chief Complaint: Headache Source: Patient Present Illness HPI Is a 32-year-old female with history of is of colitis. She presents with chief complaint abdominal cramping diarrhea. Onset today. Also with congestion. Multiple family members sick with the same. Denies any fever chills denies any vomiting but has nausea. Allergies: Coded Allergies: No Known Allergies (Unverified , 02/21/17) Patient History Past Medical History: see triage record, old chart reviewed Past Surgical History: other Pertinent Family History: none Social History: Denies: alcohol use Last Menstrual Period: aug 16 Now: No : 1 Immunizations: other Reviewed Nursing Documentation: PMH: Agreed, PSxH: Agreed Nursing Documentation-PMH Hx Gastrointestinal Problems: Yes - ulcerative colitis Review of Systems Eye: Denies: eye pain, blurred vision ENT: Denies: ear pain, nose congestion, throat swelling Respiratory: Denies: cough, shortness of breath Cardiovascular: Denies: chest pain, palpitations Gastrointestinal: Reports: diarrhea, nausea, Denies: abdominal pain, vomiting Musculoskeletal: Denies: back pain, joint pain Skin: Denies: rash Neurological: Denies: headache, numbness Endocrine: Denies: increased thirst, increased urine Hematologic/Lymphatic: Denies: easy bruising All Other Systems: negative except mentioned in HPI Physical Exam Vital Signs Date Time Temp Pulse Resp B/P (MAP) Pulse Ox O2 Delivery O2 Flow Rate FiO2 08/30/17 20:28 98.8 91 18 113/76 98 vitals normal Sp02 EP Interpretation: reviewed, normal General Appearance: well appearing, no apparent distress, alert Head: normocephalic, atraumatic Eyes: bilateral eye PERRL, bilateral eye EOMI ENT: hearing grossly normal, normal pharynx Neck: full range of motion, supple, no meningismus Respiratory: chest non-tender, lungs clear, normal breath sounds Cardiovascular #1: regular rate, rhythm, no murmur Gastrointestinal: normal bowel sounds, non tender, no mass, no organomegaly, no bruit, non-distended Musculoskeletal: back normal, gait/station normal, normal range of motion Psychiatric: mood/affect normal Skin: warm/dry Medical Decision Making Diagnostic Impression: Primary Impression: Viral illness Additional Impression: Diarrhea Qualified Codes: R19.7 - Diarrhea, unspecified ER Course Patient presents with symptoms consistent with a viral illness. No evidence of acute abdomen or obstruction. We'll discharge him. Last Vital Signs Date Time Temp Pulse Resp B/P (MAP) Pulse Ox O2 Delivery O2 Flow Rate FiO2 08/30/17 20:28 98.8 91 18 113/76 98 Status: improved Disposition: HOME, SELF-CARE Condition: Stable Scripts Ondansetron (Zofran) 4 Mg Tablet 4 MG ORAL Q6H Y for Nausea & Vomiting, #10 TAB 0 Refills Prov: SALVADOR TEMPLETON M.D. 08/30/17 Pseudoephedrine Hcl* (SUDAFED*) 60 Mg Tablet 60 MG PO Q6H, #20 TAB Prov: SALVADOR TEMPLETON M.D. 08/30/17 Additional Instructions: Followup with your Dr. in 7 days. Increase fluid. Return if worse. SALVADOR TEMPLETON M.D. Aug 30, 2017 21:14
== END 2017-08-30 21:30 | disposition home or self-care (01) ==
LOC: EMR 21:20
DX: B34.9 Viral infection, unspecified (principal)
CPT/HCPCS: 99283

== ENCOUNTER 2017-10-20 12:34 | Emergency (ER) | payer OTHER ==
[~2017-10-20] VITALS: Ht 170.2 cm; Wt 86.2 kg
[~2017-10-20 12:34] MED LIST changes: +PSEUDOEPHEDRINE60 MG PO
--- NOTE | 2017-10-20 13:10 | Emergency Room Report ---
History of Present Illness General Chief Complaint: Lower Extremity Injury Source: Patient Present Illness HPI 32-year-old female presents to the emergency department complaining of 7/10 in severity localized pain to the left lateral ankle times one hour. Patient reports she was walking down steps at her house and slightly missed one which caused an inversion of her left ankle. He should reports she heard a pop sound and had swelling. Patient states that she has taken Motrin and elevated that however she still continues to have pain which is exacerbated upon walking. Denies previous injury to this extremity. Denies numbness tingling or loss of sensation or gross motor movements of the extremities, incontinence of bowel or bladder. Denies CP, Palpitations, LOC, AMS, dizziness, Changes in Vision, Sensation, paresthesias, or a sudden severe headache. Allergies: Coded Allergies: No Known Allergies (Unverified , 02/21/17) Patient History Past Medical History: see triage record Past Surgical History: none Pertinent Family History: none Last Menstrual Period: 1-9 Now: No Reviewed Nursing Documentation: PMH: Agreed, PSxH: Agreed Nursing Documentation-PMH Past Medical History: No History, Except For Hx Gastrointestinal Problems: Yes - ulcerative colitis Review of Systems All Other Systems: negative except mentioned in HPI Physical Exam Vital Signs Date Time Temp Pulse Resp B/P (MAP) Pulse Ox O2 Delivery O2 Flow Rate FiO2 10/20/17 12:51 97.9 101 18 126/90 98 Room Air Sp02 EP Interpretation: reviewed, normal General Appearance: no apparent distress, alert, GCS 15, non-toxic Head: normocephalic, atraumatic ENT: hearing grossly normal, normal voice Neck: full range of motion Respiratory: lungs clear, normal breath sounds, speaking full sentences Cardiovascular #1: regular rate, rhythm, normal capillary refill Cardiovascular #2: 2+ dorsalis pedis (L) Rectal: deferred Genitourinary: normal inspection Musculoskeletal: back normal, gait/station normal, normal range of motion, swelling - lateral left ankle, tender - lateral left ankle, mild swelling noted , faint bruise noted. NVI. FROM Neurologic: alert, oriented x3, responsive, motor strength/tone normal, sensory intact, speech normal, grossly normal Psychiatric: judgement/insight normal Skin: normal color, no rash, warm/dry, well hydrated Medical Decision Making PA Attestation Dr. Machuca is my supervising Physician whom patient management has been discussed with. Diagnostic Impression: Primary Impression: Left ankle sprain Qualified Codes: S93.402A - Sprain of unspecified ligament of left ankle, initial encounter ER Course 32-year-old female presents to the emergency department complaining of 7/10 in severity localized pain to the left lateral ankle times one hour. Patient reports she was walking down steps at her house and slightly missed one which caused an inversion of her left ankle. He should reports she heard a pop sound and had swelling. Patient states that she has taken Motrin and elevated that however she still continues to have pain which is exacerbated upon walking. Denies previous injury to this extremity. Denies numbness tingling or loss of sensation or gross motor movements of the extremities, incontinence of bowel or bladder. Denies CP, Palpitations, LOC, AMS, dizziness, Changes in Vision, Sensation, paresthesias, or a sudden severe headache. Ddx considered but are not limited to Fracture, dislocation, contusion, Sprain/ Strain/Spasm. Vital signs: are WNL, pt. is afebrile H&PE are most consistent with musculoskeletal injury will perform imaging to r/ o fractures/dislocations. ORDERS: - X-ray Left Ankle 3 views - negative for fx, Dislocation, or significant soft tissue injury, per preliminary read in ED, and signed by MINA Molina , my supervising physician has reviewed, and agrees with my interpretation. ED INTERVENTIONS: -Khris wrap applied by vending technician. Pt. remains neurovascularly intact. --Patient is provided with crutches and instructed on their use DISCHARGE: At this time pt. is stable for d/c to home. Will provide printed patient care instructions, and any necessary prescriptions. Care plan and follow up instructions have been discussed with the patient prior to discharge. Other X-Ray Diagnostic Results Other X-Ray Diagnostic Results : X-Ray ordered: Left ankle # of Views/Limited Vs Complete: 3 View Indication: Swelling EP Interpretation: Yes MINA Xray: Interpretation reviewed, by supervising MD, and agrees with findings. Interpretation: no dislocation, no soft tissue swelling, no fractures Impression: No acute disease Electronically Signed by: Josselyn Molina PA-C Last Vital Signs Date Time Temp Pulse Resp B/P (MAP) Pulse Ox O2 Delivery O2 Flow Rate FiO2 10/20/17 12:51 97.9 101 18 126/90 98 Room Air Disposition: HOME, SELF-CARE Condition: Stable Scripts Ibuprofen* (MOTRIN*) 600 Mg Tablet 600 MG ORAL THREE TIMES A DAY, #30 TAB 0 Refills Prov: Josselyn Molina 10/20/17 Patient Instructions: Ankle Sprain Additional Instructions: Take medications as directed. Follow up with a Primary Care Provider in 3-5 days, even if your symptoms have resolved. --Please review list of primary care clinics, if you do not already have a primary care provider Return sooner to ED if new symptoms occur, or current symptoms become worse. - Please note that this Emergency Department Report was dictated using [employer] delivery system maintainer technology software, occasionally this can lead to erroneous entry secondary to interpretation by the dictation equipment. Josselyn Molina Oct 20, 2017 13:10
[2017-10-20] MEDS ORDERED: IBUPROFEN600 MG ORAL (13:24)
[2017-10-20 13:40] VITALS: BP 126/90
--- NOTE | 2017-10-20 15:59 | Diagnostic Imaging Report ---
Indication: Pain Technique: XRAY Ankle Compl Min 3v L Comparison: None Findings: Mild swelling about the medial malleolus. No acute fracture identified. Ankle mortise is intact on these nonstress views. Anatomic alignment and joint spacing of the fourth 8 grossly preserved. No radiopaque foreign body seen. Impression: No evidence of acute fracture or dislocation. Mild soft tissue swelling about the medial malleolus.
== END 2017-10-20 15:09 | disposition home or self-care (01) ==
LOC: EMR 13:05
DX: S93.402A Sprain of unspecified ligament of left ankle, initial encounter (principal); X50.1XXA Overexertion from prolonged static or awkward postures, initial encounter; Y92.009 Unspecified place in unspecified non-institutional (private) residence as the place of occurrence of the external cause
CPT/HCPCS: 99283

== ENCOUNTER 2017-11-15 20:45 | Emergency (ER) | payer OTHER ==
[~2017-11-15] VITALS: Ht 170.2 cm; Wt 86.2 kg
[2017-11-15 20:55] VITALS: BP 138/88
--- NOTE | 2017-11-15 21:20 | Emergency Room Report ---
History of Present Illness General Chief Complaint: Skin Rash/Abscess Source: Patient Present Illness HPI Patient reports that on Tuesday she had put some cologne on a piece of cotton placed did and her braw on her left breast area She has forgotten about that and essentially left it there for several hours after finding the cotton there she felt some irritation there was some redness essentially she felt like it was a burn Since then there was a blister formation that have formed a blister that popped she saw some clear liquid And now presents for evaluation Denies any fevers or chills denies any surrounding redness Allergies: Coded Allergies: No Known Allergies (Unverified , 02/21/17) Patient History Past Medical History: see triage record Past Surgical History: none Pertinent Family History: none Last Menstrual Period: Oct Reviewed Nursing Documentation: PMH: Agreed, PSxH: Agreed Nursing Documentation-PMH Hx Gastrointestinal Problems: Yes - ulcerative colitis Review of Systems All Other Systems: negative except mentioned in HPI Physical Exam Vital Signs Date Time Temp Pulse Resp B/P (MAP) Pulse Ox O2 Delivery O2 Flow Rate FiO2 11/15/17 20:53 98.8 84 16 138/88 98 Room Air 98.8 Sp02 EP Interpretation: reviewed, normal General Appearance: well appearing, no apparent distress Head: normocephalic, atraumatic Eyes: bilateral eye PERRL, bilateral eye EOMI ENT: normal pharynx, no angioedema Neck: supple Respiratory: lungs clear, normal breath sounds Cardiovascular #1: no edema, no gallop Gastrointestinal: non tender Musculoskeletal: normal inspection Neurologic: alert, oriented x3 Skin: other - Small circular abrasion appearing area just below the left breast medially approximately half centimeter in diameter, there is a similar location just opposing the area in the epigastric region. No obvious fluctuance no erythema Lymphatic: no adenopathy Medical Decision Making Diagnostic Impression: Primary Impression: Burn ER Course Patient appears to have essentially sustained a small burn area from the chemical that was on the cotton ball. The area appears fairly well-controlled patient does not appear to require antibiotics or further acute intervention she will keep the area clean and dry Will have close outpatient follow-up Last Vital Signs Date Time Temp Pulse Resp B/P (MAP) Pulse Ox O2 Delivery O2 Flow Rate FiO2 11/15/17 20:55 98.8 86 16 138/88 98 Room Air 98.8 Status: unchanged Disposition: HOME, SELF-CARE Condition: Stable Additional Instructions: Patient is provided with the discharge instructions notified to follow up with primary doctor in the next 2-3 days otherwise return to the er with any worsening symptoms. Please note that this report is being documented using [employer] technology. This can lead to erroneous entry secondary to incorrect interpretation by the dictating instrument. JANET CAMPBELL D.O. Nov 15, 2017 21:19
[2017-11-15 21:41] VITALS: BP 138/88
== END 2017-11-15 21:45 | disposition home or self-care (01) ==
LOC: EMR 21:08
DX: T65.891A Toxic effect of other specified substances, accidental (unintentional), initial encounter (principal); T21.41XA Corrosion of unspecified degree of chest wall, initial encounter; T32.0 Corrosions involving less than 10% of body surface; Y92.9 Unspecified place or not applicable
CPT/HCPCS: 99283

== ENCOUNTER 2018-01-27 21:14 | Emergency (ER) | payer OTHER ==
[~2018-01-27] VITALS: Ht 170.2 cm; Wt 88.5 kg
[2018-01-27 21:30] VITALS: BP 120/80
[2018-01-27] MEDS ORDERED: Dicyclomine HCl 10mg/5ml oral soln ORAL ONE (21:45)
[2018-01-27] MEDS ORDERED: Lidocaine 2% Visc 15ml soln ORAL ONE (21:45)
[2018-01-27] MEDS ORDERED: Mylanta II UD 30ml ORAL ONE (21:45)
[2018-01-27] MEDS ORDERED: Solu-MEDROL 125mg Inj IVP ONE (21:45)
[2018-01-27 22:15] LABS: BASOPHILS % (AUTO) 1.9 % (0.0-2.0); EOSINOPHILS % (AUTO) 1.3 % (0.0-3.0); HEMATOCRIT 39.6 % (37.0-47.0); HEMOGLOBIN 12.7 G/DL (12.0-16.0); MEAN CORPUSCULAR VOLUME 81 FL (80-99); MONOCYTES % (AUTO) 7.5 % (1.0-10.0); NEUTROPHILS % (AUTO) 51.3 % (45.0-75.0); PLATELET COUNT 369 K/UL (150-450); RED BLOOD COUNT 4.87 M/UL (4.20-5.40); RED CELL DISTRIBUTION WIDTH 13.3 % (11.6-14.8); WHITE BLOOD COUNT 7.5 K/UL (4.8-10.8)
[2018-01-27 22:16] LABS: APPEARANCE,URINE CLEAR; BILIRUBIN, URINE NEGATIVE (NEGATIVE); GLUCOSE, URINE (UA) NEGATIVE (NEGATIVE); KETONES,URINE NEGATIVE (NEGATIVE); LEUKOCYTE ESTERASE ,URINE 1+ (NEGATIVE); NITRITE,URINE NEGATIVE (NEGATIVE); PH,URINE 5 (4.5-8.0); PROTEIN,URINE NEGATIVE (NEGATIVE); UROBILINOGEN,URINE 1 MG/DL (0.0-1.0)
[2018-01-27 22:18] LABS: ANION GAP 8 mmol/L (5-15); BLOOD UREA NITROGEN 7 mg/dL (7-18); CALCIUM 8.7 MG/DL (8.5-10.1); CARBON DIOXIDE 25 MMOL/L (21-32); CHLORIDE 104 MMOL/L (98-107); COLOR,URINE YELLOW; CREATININE 0.8 MG/DL (0.55-1.30); POTASSIUM 3.9 MMOL/L (3.5-5.1); SODIUM 137 MMOL/L (136-145)
[2018-01-27 22:23] LABS: ALANINE AMINOTRANSFERASE 18 U/L (12-78); ALBUMIN 3.6 G/DL (3.4-5.0); ALBUMIN/GLOBULIN RATIO 0.8 (1.0-2.7); ALKALINE PHOSPHATASE 64 U/L (46-116); ASPARTATE AMINO TRANSFERASE 14 U/L (15-37); BILIRUBIN,TOTAL 0.3 MG/DL (0.2-1.0)
[2018-01-27] MEDS ORDERED: PREDNISONE20 MG ORAL (22:46)
[2018-01-27 23:30] VITALS: BP 126/77
[2018-01-28 00:05] VITALS: BP 126/77
--- NOTE | 2018-01-28 05:48 | Emergency Room Report ---
History of Present Illness General Chief Complaint: Earache Source: Patient Present Illness HPI 32-year-old female presents ED for evaluation. Patient states she is having a flareup of her ulcerative colitis started yesterday. Noticing abdominal pain and multiple loose watery stools. Denies fevers or chills. Denies any chest pain or shortness of breath. Pain is cramping, 8 out of 10, nonradiating. Also complaining of left ear pain which she noticed this morning. Denies fevers or chills. Denies cough. No other aggravating relieving factors. Denies any other associated symptoms Allergies: Coded Allergies: No Known Allergies (Unverified , 02/21/17) Patient History Past Medical History: other - ulcerative colitisw Past Surgical History: none Pertinent Family History: none Social History: Denies: smoking, alcohol use, drug use Last Menstrual Period: December Now: No Immunizations: UTD Reviewed Nursing Documentation: PMH: Agreed; PSxH: Agreed Nursing Documentation-PMH Hx Gastrointestinal Problems: Yes - ulcerative colitis Review of Systems All Other Systems: negative except mentioned in HPI Physical Exam Vital Signs Date Time Temp Pulse Resp B/P (MAP) Pulse Ox O2 Delivery O2 Flow Rate FiO2 01/27/ 21:15 98.0 99 16 123/83 97 Room Air 98.1 Sp02 EP Interpretation: reviewed, normal General Appearance: no apparent distress, alert, GCS 15, non-toxic Head: normocephalic, atraumatic Eyes: bilateral eye normal inspection, bilateral eye PERRL ENT: hearing grossly normal, normal pharynx, no angioedema, normal voice, TMs + canals normal Neck: full range of motion, supple/symm/no masses Respiratory: chest non-tender, lungs clear, normal breath sounds, speaking full sentences Cardiovascular #1: regular rate, rhythm, no edema Cardiovascular #2: 2+ carotid (R), 2+ carotid (L), 2+ radial (R), 2+ radial (L) , 2+ dorsalis pedis (R), 2+ dorsalis pedis (L) Gastrointestinal: normal bowel sounds, soft, non-distended, no guarding, no rebound, tenderness Rectal: deferred Genitourinary: normal inspection, no CVA tenderness Musculoskeletal: back normal, gait/station normal, normal range of motion, non- tender Neurologic: alert, oriented x3, responsive, motor strength/tone normal, sensory intact, speech normal Psychiatric: judgement/insight normal, memory normal, mood/affect normal, no suicidal/homicidal ideation Reflexes: 3+ bicep (R), 3+ bicep (L), 3+ tricep (R), 3+ tricep (L), 3+ knee (R) , 3+ knee (L) Skin: normal color, no rash, warm/dry, well hydrated Lymphatic: no adenopathy Medical Decision Making Diagnostic Impression: Primary Impression: History of ulcerative colitis Additional Impression: Ear pain Qualified Codes: H92.02 - Otalgia, left ear ER Course Hospital Course 32-year-old F presents to ED with cramping abdominal pain with diarrhea differential diagnosis: gastritis, SBO, cholecystits, gastroenteritis Clinical course Patient placed on stretcher. On court monitor. After initial history and physical I ordered labs, IV fluids, GI cocktail, pepcid, zofran, solumedrol Labs - no leukocytosis, electrolytes, LFTs normal, UA unremarkable Upon reassessment, patient states she feels better. Discussed findings with patient. We'll prescribe short course of prednisone. My suspicion for otitis media is low. However given her ulcerative colitis flareup I would prefer to not prescribe antibiotics as to worsen her symptoms. Patient agrees I feel this is a highly complex case requiring extensive working including EKG/ Rhythm strip, Xray/CT/US, Blood/urine lab work, repeat exams while in ED, and administration of strong opiates/narcotics for pain control, admission to hospital or close patient follow up. Diagnosis - ulcerative colitis, ear pain Stable and discharged to home with prescriptions for prednisone. Followup with PMD. Return to ED if symptoms recur or worsen Labs Test 01/27/18 21:45 White Blood Count 7.5 K/UL (4.8-10.8) Red Blood Count 4.87 M/UL (4.20-5.40) Hemoglobin 12.7 G/DL (12.0-16.0) Hematocrit 39.6 % (37.0-47.0) Mean Corpuscular Volume 81 FL (80-99) Mean Corpuscular Hemoglobin 26.1 PG (27.0-31.0) Mean Corpuscular Hemoglobin Concent 32.2 G/DL (32.0-36.0) Red Cell Distribution Width 13.3 % (11.6-14.8) Platelet Count 369 K/UL (150-450) Mean Platelet Volume 5.7 FL (6.5-10.1) Neutrophils (%) (Auto) 51.3 % (45.0-75.0) Lymphocytes (%) (Auto) 38.0 % (20.0-45.0) Monocytes (%) (Auto) 7.5 % (1.0-10.0) Eosinophils (%) (Auto) 1.3 % (0.0-3.0) Basophils (%) (Auto) 1.9 % (0.0-2.0) Urine Color Yellow Urine Appearance Clear Urine pH 5 (4.5-8.0) Urine Specific [place] 1.025 (1.005-1.035) Urine Protein Negative (NEGATIVE) Urine Glucose (UA) Negative (NEGATIVE) Urine Ketones Negative (NEGATIVE) Urine Occult Blood 2+ (NEGATIVE) Urine Nitrite Negative (NEGATIVE) Urine Bilirubin Negative (NEGATIVE) Urine Urobilinogen 1 MG/DL (0.0-1.0) Urine Leukocyte Esterase 1+ (NEGATIVE) Urine RBC 2-4 /HPF (0 - 2) Urine WBC 0-2 /HPF (0 - 2) Urine Squamous Epithelial Cells Few /LPF (NONE/OCC) Urine Bacteria Few /HPF (NONE) Urine HCG, Qualitative Negative (NEGATIVE) Sodium Level 137 MMOL/L (136-145) Potassium Level 3.9 MMOL/L (3.5-5.1) Chloride Level 104 MMOL/L (98-107) Carbon Dioxide Level 25 MMOL/L (21-32) Anion Gap 8 mmol/L (5-15) Blood Urea Nitrogen 7 mg/dL (7-18) Creatinine 0.8 MG/DL (0.55-1.30) Estimat Glomerular Filtration Rate > 60 mL/min (>60) Glucose Level 91 MG/DL (74-106) Calcium Level 8.7 MG/DL (8.5-10.1) Total Bilirubin 0.3 MG/DL (0.2-1.0) Aspartate Amino Transf (AST/SGOT) 14 U/L (15-37) Alanine Aminotransferase (ALT/SGPT) 18 U/L (12-78) Alkaline Phosphatase 64 U/L (46-116) Total Protein 8.3 G/DL (6.4-8.2) Albumin 3.6 G/DL (3.4-5.0) Globulin 4.7 g/dL Albumin/Globulin Ratio 0.8 (1.0-2.7) Lipase 89 U/L (73-393) Last Vital Signs Date Time Temp Pulse Resp B/P (MAP) Pulse Ox O2 Delivery O2 Flow Rate FiO2 01/28/18 00:05 98.0 70 16 126/77 99 Room Air 98.0 Status: improved Disposition: HOME, SELF-CARE Condition: Stable Scripts Prednisone* (PREDNISONE*) 20 Mg Tablet 40 MG ORAL DAILY, #10 TAB Prov: Min Cunningham MD 01/27/18 Patient Instructions: Ulcerative Colitis, Adult Min Cunningham MD January 28, 2018 05:48
== END 2018-01-28 00:05 | disposition home or self-care (01) ==
LOC: EMR 21:39
DX: K51.90 Ulcerative colitis, unspecified, without complications (principal); H92.02 Otalgia, left ear
CPT/HCPCS: 36415; 80053; 81003; 81025; 83690; 85025; 96361; 96374; 96375; 99284; J2405; J2930; S0028

== ENCOUNTER 2018-01-31 23:20 | Emergency (ER) | payer OTHER ==
[~2018-01-31] VITALS: Ht 170.2 cm; Wt 85.7 kg
[2018-01-31 23:37] VITALS: BP 123/89
[2018-02-01] MEDS ORDERED: Ketorolac 30mg Inj IV ONE
--- NOTE | 2018-02-01 00:52 | Emergency Room Report ---
History of Present Illness General Chief Complaint: Abdominal Pain Source: Patient Present Illness HPI Is a 32-year-old female with a history of ulcerative colitis. She presents with chief complaint abdominal pain with vomiting and diarrhea. Onset was acute and occurred about a couple hours ago. She felt weak. No fever chills. Vomiting is nonbloody nonbilious. Diarrhea is watery. Pain is sharp and crampy. 9 out of 10. Allergies: Coded Allergies: No Known Allergies (Unverified , 02/21/17) Patient History Past Medical History: see triage record, old chart reviewed Past Surgical History: other Pertinent Family History: none Social History: Denies: smoking Last Menstrual Period: January 28 Now: No Immunizations: other Reviewed Nursing Documentation: PMH: Agreed; PSxH: Agreed Nursing Documentation-PMH Hx Gastrointestinal Problems: Yes - ulcerative colitis Review of Systems Eye: Denies: eye pain, blurred vision ENT: Denies: ear pain, nose congestion, throat swelling Respiratory: Denies: cough, shortness of breath Cardiovascular: Denies: chest pain, palpitations Gastrointestinal: Reports: abdominal pain, diarrhea, nausea, vomiting Musculoskeletal: Denies: back pain, joint pain Skin: Denies: rash Neurological: Denies: headache, numbness Endocrine: Denies: increased thirst, increased urine Hematologic/Lymphatic: Denies: easy bruising All Other Systems: negative except mentioned in HPI Physical Exam Vital Signs Date Time Temp Pulse Resp B/P (MAP) Pulse Ox O2 Delivery O2 Flow Rate FiO2 01/31/18 23:28 97.9 111 18 123/89 98 Room Air 97.9 vitals with tachycardia Sp02 EP Interpretation: reviewed, normal General Appearance: well appearing, no apparent distress, alert Head: normocephalic, atraumatic Eyes: bilateral eye PERRL, bilateral eye EOMI ENT: hearing grossly normal, normal pharynx Neck: full range of motion, supple, no meningismus Respiratory: chest non-tender, lungs clear, normal breath sounds Cardiovascular #1: regular rate, rhythm, no murmur Gastrointestinal: no mass, no organomegaly, no bruit, non-distended, abnormal bowel sounds - hyperactive, grumbling, tenderness - mild, diffuse Musculoskeletal: back normal, gait/station normal, normal range of motion Neurologic: alert, oriented x3 Psychiatric: mood/affect normal Skin: warm/dry Medical Decision Making Diagnostic Impression: Primary Impression: Abdominal pain Qualified Codes: R10.84 - Generalized abdominal pain Additional Impression: Nausea vomiting and diarrhea ER Course Patient with abdominal pain with nausea vomiting diarrhea. This is most likely a gastroenteritis has been prevalent in the community the last couple weeks. She felt better now. No evidence of obstructive process. No evidence of an acute abdomen. We'll discharge home. Last Vital Signs Date Time Temp Pulse Resp B/P (MAP) Pulse Ox O2 Delivery O2 Flow Rate FiO2 01/31/18 23:37 97.9 18 123/89 98 Room Air 97.9 01/31/18 23:28 111 Status: improved Disposition: HOME, SELF-CARE Condition: Stable Scripts Ondansetron (Zofran) 4 Mg Tablet 4 MG ORAL Q6H PRN for Nausea & Vomiting, #10 TAB 0 Refills Prov: SALVADOR TEMPLETON M.D. 02/01/18 Referrals: NOT CHOSEN [facility]/,REFERRING (PCP) Patient Instructions: Abdominal Pain, Adult Additional Instructions: follow-up with your Dr. in 2-3 days. Return if worse. SALVADOR TEMPLETON M.D. February 01, 2018 00:52
[2018-02-01 00:55] LABS: BASOPHILS % (AUTO) 0.8 % (0.0-2.0); EOSINOPHILS % (AUTO) 0.4 % (0.0-3.0); HEMATOCRIT 40.4 % (37.0-47.0); LYMPHOCYTES % (AUTO) 25.7 % (20.0-45.0); MEAN CORPUSCULAR VOLUME 81 FL (80-99); MONOCYTES % (AUTO) 6.9 % (1.0-10.0); NEUTROPHILS % (AUTO) 66.2 % (45.0-75.0); PLATELET COUNT 375 K/UL (150-450); RED BLOOD COUNT 4.97 M/UL (4.20-5.40); RED CELL DISTRIBUTION WIDTH 13.1 % (11.6-14.8); WHITE BLOOD COUNT 10.9 K/UL (4.8-10.8)
[2018-02-01 00:58] LABS: ANION GAP 10 mmol/L (5-15); BLOOD UREA NITROGEN 9 mg/dL (7-18); CALCIUM 9.1 MG/DL (8.5-10.1); CARBON DIOXIDE 25 MMOL/L (21-32); CHLORIDE 104 MMOL/L (98-107); CREATININE 0.9 MG/DL (0.55-1.30); POTASSIUM 3.8 MMOL/L (3.5-5.1); SODIUM 139 MMOL/L (136-145)
[2018-02-01] MEDS ORDERED: ZOFRAN4 MG ORAL (01:36)
[2018-02-01] MEDS ORDERED: HYDROCODON-ACE1 EA15 ORAL (01:44)
[2018-02-01 01:55] VITALS: BP 129/83
== END 2018-02-01 01:55 | disposition home or self-care (01) ==
LOC: EMR 23:37
DX: K51.90 Ulcerative colitis, unspecified, without complications (principal)
CPT/HCPCS: 36415; 80048; 83690; 85025; 96374; 96375; 99284; J1885; J2405

== ENCOUNTER 2018-03-31 17:09 | Emergency (ER) | payer OTHER ==
[~2018-03-31] VITALS: Ht 170.2 cm; Wt 84.8 kg
[2018-03-31 17:27] VITALS: BP 127/76
[2018-03-31] MEDS ORDERED: PREDNISONE20 MG ORAL (17:44)
[2018-03-31] MEDS ORDERED: NORCO 5-325 TA1 EACH ORAL (17:44)
[2018-03-31] MEDS ORDERED: DICYCLOMINE HCL10 MG PO (17:44)
[2018-03-31] MEDS ORDERED: Norco 5mg/325mg tab ORAL ONE (17:45)
[2018-03-31] MEDS ORDERED: Dicyclomine HCl 10mg/5ml oral soln ORAL ONE (17:45)
[2018-03-31 18:14] LABS: APPEARANCE,URINE CLEAR; BILIRUBIN, URINE 1+ (NEGATIVE); GLUCOSE, URINE (UA) NEGATIVE (NEGATIVE); KETONES,URINE 1+ (NEGATIVE); LEUKOCYTE ESTERASE ,URINE 2+ (NEGATIVE); NITRITE,URINE NEGATIVE (NEGATIVE); PH,URINE 5 (4.5-8.0); PROTEIN,URINE 2+ (NEGATIVE); UROBILINOGEN,URINE 1 MG/DL (0.0-1.0)
[2018-03-31 18:19] LABS: COLOR,URINE YELLOW
[2018-03-31 18:35] VITALS: BP 127/76
--- NOTE | 2018-03-31 18:38 | Emergency Room Report ---
History of Present Illness General Chief Complaint: Abdominal Pain Source: Patient Present Illness HPI Patient is a 32-year-old female who presented after increased abdominal pain. Patient was having increased lower abdominal fullness and cramping. She reports having increased bloating sensation. Patient reports having prior history of ulcer colitis which was previously diagnosed on CT. Patient reports having a prior history of colonoscopy which showed of ulcerative colitis. She reports additionally having a prior history of rheumatoid arthritis however she states that her recent laboratory testing did not show evidence of this and she' s had no recent flares. The patient denies any fever. She reported having emesis yesterday. She denies feeling dizzy or lightheaded. She points having increased abdominal cramping Allergies: Coded Allergies: No Known Allergies (Unverified , 02/21/17) Patient History Past Medical History: see triage record Last Menstrual Period: 03/12/18 Now: No : 1 Para: 0 Reviewed Nursing Documentation: PMH: Agreed; PSxH: Agreed Nursing Documentation-PMH Hx Gastrointestinal Problems: Yes - ulcerative colitis Review of Systems All Other Systems: negative except mentioned in HPI Physical Exam Vital Signs Date Time Temp Pulse Resp B/P (MAP) Pulse Ox O2 Delivery O2 Flow Rate FiO2 03/31/18 17:17 97.8 98 18 127/76 99 Room Air 97.9 General Appearance: well appearing, no apparent distress, alert, GCS 15, obese Head: normocephalic, atraumatic ENT: hearing grossly normal, normal voice Neck: full range of motion, supple Respiratory: no respiratory distress, speaking full sentences Cardiovascular #1: normal inspection, normal peripheral pulses, regular rate, rhythm Gastrointestinal: normal inspection, normal bowel sounds, non tender, soft, no mass Genitourinary: no CVA tenderness Musculoskeletal: normal inspection, back normal, digits/nails normal, no calf tenderness Neurologic: normal inspection, alert, oriented x3, responsive, building custodian III-XII nml as tested, motor strength/tone normal, normal gait Psychiatric: normal inspection, mood/affect normal Skin: normal inspection, normal color, no rash Medical Decision Making Diagnostic Impression: Primary Impression: Abdominal pain Additional Impression: History of ulcerative colitis ER Course Patient presented for abdominal pain. Differential diagnoses included bowel obstruction,ischemic bowel, appendicitis, perforated viscus, abdominal aortic aneurysm, inferior myocardial infarction, viral gastroenteritis. Patient has a benign exam and does not appear to require any further imaging or laboratory testing at this time. The patient is advised to continue a bland diet. Patient is advised to follow-up with her GI physician.The patient urinalysis the appears to show some white cells and red cells which is possibly due to colonic inflammation. The patient was advised that she would be treated with antibiotics if urine culture comes back positive but not at this time.The patient is advised to follow up with primary care doctor in 1-2 days. Patient is advised to return if any worsening condition or if any changes in status that are concerning. This report is dictated with [employer] lock maintenance supervisor software which may occasionally lead to discrepancies related to use of this software. Labs Test 03/31/18 17:40 Urine Color Yellow Urine Appearance Clear Urine pH 5 (4.5-8.0) Urine Specific [place] 1.030 (1.005-1.035) Urine Protein 2+ (NEGATIVE) Urine Glucose (UA) Negative (NEGATIVE) Urine Ketones 1+ (NEGATIVE) Urine Occult Blood 4+ (NEGATIVE) Urine Nitrite Negative (NEGATIVE) Urine Bilirubin 1+ (NEGATIVE) Urine Ictotest Negative Urine Urobilinogen 1 MG/DL (0.0-1.0) Urine Leukocyte Esterase 2+ (NEGATIVE) Urine RBC 5-10 /HPF (0 - 2) Urine WBC 5-10 /HPF (0 - 2) Urine Squamous Epithelial Cells Few /LPF (NONE/OCC) Urine Bacteria Few /HPF (NONE) Urine HCG, Qualitative Negative (NEGATIVE) Last Vital Signs Date Time Temp Pulse Resp B/P (MAP) Pulse Ox O2 Delivery O2 Flow Rate FiO2 03/31/18 17:50 97.8 03/31/18 17:27 70 18 127/76 99 Room Air Status: improved Disposition: HOME, SELF-CARE Condition: Stable Scripts Dicyclomine Hcl* (DICYCLOMINE HCL*) 10 Mg Capsule 10 MG PO QID, #20 CAP Prov: Carrington Decker MD 03/31/18 Prednisone* (PREDNISONE*) 20 Mg Tablet 40 MG ORAL DAILY, #15 TAB Prov: Carrington Decker MD 03/31/18 Hydrocodone Bit/Acetaminophen 5-325* (NORCO 5-325*) 1 Each Tablet 1 TAB ORAL Q6H PRN for For Pain, #10 TAB 0 Refills Prov: Carrington Decker MD 03/31/18 Referrals: Maddie DAMICO,REFERRING (PCP) Patient Instructions: Abdominal Pain, Adult Carrington Decker MD Mar 31, 2018 18:38
== END 2018-03-31 18:37 | disposition home or self-care (01) ==
LOC: EMR 17:48
DX: R10.30 Lower abdominal pain, unspecified (principal); Z87.19 Personal history of other diseases of the digestive system
CPT/HCPCS: 81003; 81025; 99284

== ENCOUNTER 2018-09-18 23:55 | Emergency (ER) | payer OTHER ==
[~2018-09-18] VITALS: Ht 170.2 cm; Wt 86.2 kg
[~2018-09-18 23:55] MED LIST changes: +DICYCLOMINE HCL10 MG PO
[2018-09-19 00:10] VITALS: BP 116/77
--- NOTE | 2018-09-19 00:10 | NUR ---
ED Nurse Note: Patient presents to ED c/o upper abdominal pain for 3x days. Patient states it feels like "an ulcerative colitis flare up". Patient reports nausea and constipation. PT AO4. NAD. Denies SOB. Attached to monitor.
[2018-09-19] MEDS ORDERED: Ketorolac 30mg Inj IV ONE (00:45)
--- NOTE | 2018-09-19 00:50 | NUR ---
ED Nurse Note: IV access established. Blood and urine collected; sent down to lab.
[2018-09-19 01:17] LABS: BASOPHILS % (AUTO) 1.8 % (0.0-2.0); EOSINOPHILS % (AUTO) 0.9 % (0.0-3.0); HEMATOCRIT 40.1 % (37.0-47.0); HEMOGLOBIN 12.8 G/DL (12.0-16.0); LYMPHOCYTES % (AUTO) 46.1 % (20.0-45.0); MEAN CORPUSCULAR VOLUME 85 FL (80-99); MONOCYTES % (AUTO) 6.5 % (1.0-10.0); NEUTROPHILS % (AUTO) 44.6 % (45.0-75.0); PLATELET COUNT 283 K/UL (150-450); RED BLOOD COUNT 4.71 M/UL (4.20-5.40); RED CELL DISTRIBUTION WIDTH 12.5 % (11.6-14.8); WHITE BLOOD COUNT 8.2 K/UL (4.8-10.8)
[2018-09-19 01:18] LABS: APPEARANCE,URINE CLEAR; BILIRUBIN, URINE NEGATIVE (NEGATIVE); GLUCOSE, URINE (UA) NEGATIVE (NEGATIVE); KETONES,URINE 1+ (NEGATIVE); LEUKOCYTE ESTERASE ,URINE 1+ (NEGATIVE); NITRITE,URINE NEGATIVE (NEGATIVE); PH,URINE 6 (4.5-8.0); PROTEIN,URINE 1+ (NEGATIVE); UROBILINOGEN,URINE 1 MG/DL (0.0-1.0)
[2018-09-19 01:26] LABS: COLOR,URINE YELLOW
[2018-09-19 01:29] LABS: ANION GAP 9 mmol/L (5-15); BLOOD UREA NITROGEN 12 mg/dL (7-18); CALCIUM 9.4 MG/DL (8.5-10.1); CARBON DIOXIDE 27 MMOL/L (21-32); CHLORIDE 102 MMOL/L (98-107); CREATININE 0.8 MG/DL (0.55-1.30); POTASSIUM 4.1 MMOL/L (3.5-5.1); SODIUM 138 MMOL/L (136-145)
[2018-09-19 01:33] LABS: ALANINE AMINOTRANSFERASE 15 U/L (12-78); ALBUMIN 3.6 G/DL (3.4-5.0); ALBUMIN/GLOBULIN RATIO 0.8 (1.0-2.7); ALKALINE PHOSPHATASE 77 U/L (46-116); ASPARTATE AMINO TRANSFERASE 15 U/L (15-37); BILIRUBIN,TOTAL 0.2 MG/DL (0.2-1.0)
--- NOTE | 2018-09-19 01:42 | Emergency Room Report ---
History of Present Illness General Chief Complaint: Abdominal Pain Source: Patient Present Illness HPI Is a 33 year female with history of ulcerative colitis. She presents with chief complaint abdominal pain with nausea and diarrhea. Onset for 2 days. Anus sharp and crampy. Mostly epigastric. No vomiting. Decreased appetite. Diarrhea is watery and loose. Cramping pain. Never had this problem before. Allergies: Coded Allergies: No Known Allergies (Unverified , 02/21/17) Patient History Past Medical History: see triage record, old chart reviewed, other - Ulcerative colitis Past Surgical History: none Pertinent Family History: none Social History: Denies: smoking Last Menstrual Period: 08/21/2018 Now: No : 1 Para: 0 Immunizations: other Reviewed Nursing Documentation: PMH: Agreed; PSxH: Agreed Nursing Documentation-PMH Past Medical History: No History, Except For Hx Gastrointestinal Problems: Yes - ulcerative colitis Review of Systems Eye: Denies: eye pain, blurred vision ENT: Denies: ear pain, nose congestion, throat swelling Respiratory: Denies: cough, shortness of breath Cardiovascular: Denies: chest pain, palpitations Gastrointestinal: Reports: abdominal pain, diarrhea, nausea; Denies: vomiting Musculoskeletal: Denies: back pain, joint pain Skin: Denies: rash Neurological: Denies: headache, numbness Endocrine: Denies: increased thirst, increased urine Hematologic/Lymphatic: Denies: easy bruising All Other Systems: negative except mentioned in HPI Physical Exam Vital Signs Date Time Temp Pulse Resp B/P (MAP) Pulse Ox O2 Delivery O2 Flow Rate FiO2 09/19/18 00:00 98.1 92 16 116/77 96 Room Air vitals normal Sp02 EP Interpretation: reviewed, normal General Appearance: well appearing, no apparent distress, alert Head: normocephalic, atraumatic Eyes: bilateral eye PERRL, bilateral eye EOMI ENT: hearing grossly normal, normal pharynx Neck: full range of motion, supple, no meningismus Respiratory: chest non-tender, lungs clear, normal breath sounds Cardiovascular #1: regular rate, rhythm, no murmur Gastrointestinal: non tender, no mass, no organomegaly, no bruit, non-distended , decreased bowel sounds Musculoskeletal: back normal, gait/station normal, normal range of motion Psychiatric: mood/affect normal Skin: warm/dry Medical Decision Making Diagnostic Impression: Primary Impression: Abdominal pain Qualified Codes: R10.13 - Epigastric pain ER Course Is a 33-year-old female presents with epigastric pain with nausea and diarrhea. Most likely a viral gastroenteritis. She fell better now. Labs unremarkable. CT unremarkable. We'll discharge home. CT/MRI/US Diagnostic Results CT/MRI/US Diagnostic Results : Imaging Test Ordered: CT abdomen and pelvis Impression no acute process per radiologist. Last Vital Signs Date Time Temp Pulse Resp B/P (MAP) Pulse Ox O2 Delivery O2 Flow Rate FiO2 09/19/18 00:00 98.1 92 16 116/77 96 Room Air Status: unchanged Disposition: HOME, SELF-CARE Condition: Stable Referrals: Maddie DAMICO,REFERRING (PCP) Patient Instructions: Abdominal Pain, Adult Additional Instructions: Follow-up with your doctor in 7 days. Return if symptom worsen. Cesar Bearden MD Sep 19, 2018 01:42
[2018-09-19 02:50] VITALS: BP 116/77
--- NOTE | 2018-09-19 02:50 | NUR ---
ED Nurse Note: Patient cleared for discharge per ERMD. AO4. NAD. VSS. Patient given prescriptions and discharge instructions; verbalized understanding. IV and ID band removed. Patient ambulated out with all personal belongings with steady gait.
--- NOTE | 2018-09-19 09:58 | Diagnostic Imaging Report ---
Indication: Abdominal pain Technique: Continuous helical transaxial imaging of the abdomen and pelvis was obtained from the lung bases to the pubic symphysis. No intravenous contrast was administered. Coronal 2-D reformats were also obtained. Automatic Exposure Control was utilized. Total Dose length Product (DLP): 992.[address] Dose Index Volume (CTDIvol): 18.6 mGy Comparison: 10/28/2016 Findings: Lung bases are clear. Solid organ evaluation limited on noncontrast imaging. The gallbladder is contracted. No hydronephrosis or renal stones or urinary tract stones identified. Small umbilical hernia containing fat noted. No free fluid identified. Urinary bladder is nondistended. The appendix is normal. Uterus noted. Accessory spleen noted. IMPRESSION: No acute findings. [facility] has communicated the preliminary results to the Emergency Department. Their findings are largely concordant with this report. The CT scanner at [facility] is accredited by the [employer] and the scans are performed using dose optimization techniques as appropriate to a performed exam including Automatic Exposure control.
== END 2018-09-19 02:50 | disposition home or self-care (01) ==
LOC: EMR 09-19 00:19
DX: R10.13 Epigastric pain (principal); R19.7 Diarrhea, unspecified; R11.0 Nausea; Z87.19 Personal history of other diseases of the digestive system
CPT/HCPCS: 36415; 74176; 80053; 81003; 81025; 83690; 85025; 96361; 96374; 96375; 99284; J1885; J2405

== ENCOUNTER → 2018-10-16 | Emergency (ER) | payer SELFPAY ==
[~2018-10-16] VITALS: Ht 170.2 cm; Wt 86.2 kg
[~2018-10-16] MED LIST changes: +AUGMENTIN 875-1 EAC1 ORAL
[2018-10-16 21:37] VITALS: BP 121/85
--- NOTE | 2018-10-16 21:41 | Emergency Room Report ---
History of Present Illness General Chief Complaint: Flu Like Symptoms Source: Patient Present Illness HPI This is a 33-year-old female with a history of ulcerative colitis. She presents with chief complaint of cough congestion. Onset for last 5 days but worse in today. Now is with increasing sore throat and loss of voice. Pain is 7 out of 10. No nausea no vomiting. Cough is productive for sputum. Sick contact in her grandfather. [id number] medication not helping. Allergies: Coded Allergies: No Known Allergies (Unverified , 02/21/17) Patient History Past Medical History: see triage record, old chart reviewed Past Surgical History: other Pertinent Family History: none Social History: Denies: smoking Last Menstrual Period: sep Now: No Immunizations: other Reviewed Nursing Documentation: PMH: Agreed; PSxH: Agreed Nursing Documentation-PMH Hx Gastrointestinal Problems: Yes - ulcerative colitis Review of Systems Eye: Reports: nose congestion; Denies: eye pain, blurred vision ENT: Reports: nose congestion, throat pain; Denies: ear pain, throat swelling Respiratory: Reports: cough; Denies: shortness of breath Cardiovascular: Denies: chest pain, palpitations Gastrointestinal: Denies: abdominal pain, diarrhea, nausea, vomiting Musculoskeletal: Denies: back pain, joint pain Skin: Denies: rash Neurological: Denies: headache, numbness Endocrine: Denies: increased thirst, increased urine Hematologic/Lymphatic: Denies: easy bruising All Other Systems: negative except mentioned in HPI Physical Exam Vital Signs Date Time Temp Pulse Resp B/P (MAP) Pulse Ox O2 Delivery O2 Flow Rate FiO2 10/16/18 21:29 98.2 100 16 121/85 98 Room Air vitals ellen Sp02 EP Interpretation: reviewed, normal General Appearance: well appearing, no apparent distress, alert Head: normocephalic, atraumatic Eyes: bilateral eye PERRL, bilateral eye EOMI ENT: hearing grossly normal, uvula midline - Enlarged, tonsillar swelling, pharyngeal erythema, tonsillar exudate, other - No trismus Neck: full range of motion, supple, no meningismus Respiratory: chest non-tender, lungs clear, normal breath sounds Cardiovascular #1: regular rate, rhythm, no murmur Gastrointestinal: normal bowel sounds, non tender, no mass, no organomegaly, no bruit, non-distended Musculoskeletal: back normal, gait/station normal, normal range of motion Psychiatric: mood/affect normal Skin: warm/dry Medical Decision Making Diagnostic Impression: Primary Impression: Upper respiratory infection, acute Additional Impression: Acute tonsillitis Qualified Codes: J03.90 - Acute tonsillitis, unspecified ER Course Patient presents with upper respiratory infection. Most likely viral in nature. Because of her exudative tonsillitis, will treat with antibiotics. No evidence of meningitis, sepsis, peritonsillar abscess, retropharyngeal abscess or other serious bacterial infection. Last Vital Signs Date Time Temp Pulse Resp B/P (MAP) Pulse Ox O2 Delivery O2 Flow Rate FiO2 10/16/18 21:29 98.2 100 16 121/85 98 Room Air Status: unchanged Disposition: HOME, SELF-CARE Condition: Stable Scripts Pseudoephedrine Hcl* (SUDAFED*) 60 Mg Tablet 60 MG PO Q6H, #20 TAB Prov: Cesar Bearden MD 10/16/18 Amoxicillin/Potassium Clav 875-125* (AUGMENTIN 875-125 TABLET*) 1 Each Tablet 1 TAB ORAL TWICE A DAY, #14 TAB Prov: Cesar Bearden MD 10/16/18 Albuterol Sulfate* (ALBUTEROL SULFATE MDI*) 8.5 Gm Hfa.aer.ad 2 PUFF INH Q4H PRN for cough/wheezing, #1 EA 0 Refills Prov: Cesar Bearden MD 10/16/18 Additional Instructions: Increase fluids. Salt water gargle. Follow-up with your doctor in 7 days. Return if worse. Cesar Bearden MD Oct 16, 2018 21:41
[2018-10-16 21:49] VITALS: BP 121/85
--- NOTE | 2018-10-16 21:50 | NUR ---
ED Nurse Note: Pt walked in c/o flu like s/s for four days, pt AA&ox4, gcs=15, skin warm and dry, resp even and unlabored, noted nasal congestion, airway intact, -n/v/d, ambulates w/steady gait, denies cp/larsen at this time. pt cleared to d/c per ERMD order, pt discharge instruction provided w/prescription, pt advised to follow up with pcp or return to ed if s/s worsen or new s/s develop, pt education done via discussion and hand out, wristband removed, pt verbalized understanding and agrees with plan. pt vss, ambulatory w/ steady gait, resp even and unlabored, airway intact, all belongings left with pt.
== END | disposition home or self-care (01) ==
LOC: EDBD 21:20 → EMR 21:40
DX: J06.9 Acute upper respiratory infection, unspecified (principal); J03.90 Acute tonsillitis, unspecified
CPT/HCPCS: 99282

== ENCOUNTER 2018-12-03 19:03 | Emergency (ER) | payer OTHER ==
[~2018-12-03] VITALS: Ht 170.2 cm; Wt 86.2 kg
[2018-12-03 19:25] VITALS: BP 139/92
--- NOTE | 2018-12-03 19:25 | NUR ---
ED Nurse Note: Patient walked in from [place] with steady gait complaining of right eye pain, dyscomfort, and left arm pain because of arthritis attack. AAO x4, VSS at this time.
--- NOTE | 2018-12-03 19:30 | Emergency Room Report ---
History of Present Illness General Chief Complaint: Eye Problems Source: Patient Present Illness HPI 33-year-old female with history of rheumatoid arthritis and ulcerative colitis, he does not have Currently under no treatment by system engineer here complaining of 3 days of rheumatoid arthritis flareup in her left elbow. Patient has been recently treated with prednisone for ulcerative colitis and has been taking Tylenol for pain with minimal relief rating the pain to 10 without radiation and denying Tingling. Patient further reports of 3 weeks of green/yellow discharge from right eye denies pain or pruritus has been rubbing her eyes on daily basis and wears eye makeup on daily basis. Chest pain, SOB, palpitations, blurred vision, loss of vision and all other associated symptoms. Allergies: Coded Allergies: No Known Allergies (Unverified , 02/21/17) Patient History Past Medical History: see triage record Past Surgical History: unable to obtain Pertinent Family History: none Last Menstrual Period: 11/11/2018 Now: No Reviewed Nursing Documentation: PMH: Agreed; PSxH: Agreed Nursing Documentation-PMH Past Medical History: No History, Except For Hx Gastrointestinal Problems: Yes - ulcerative colitis Review of Systems All Other Systems: negative except mentioned in HPI Physical Exam Vital Signs Date Time Temp Pulse Resp B/P (MAP) Pulse Ox O2 Delivery O2 Flow Rate FiO2 12/03/18 19:08 98.2 88 17 139/92 96 Room Air Sp02 EP Interpretation: reviewed, normal General Appearance: normal inspection, well appearing Head: normocephalic Eyes: right eye other - yellow dc and injected conjunctiva ENT: normal ENT inspection, hearing grossly normal Neck: normal inspection, full range of motion, supple Respiratory: normal inspection, chest non-tender, lungs clear, no rhonchi, no wheezing Cardiovascular #1: normal inspection, normal peripheral pulses, regular rate, rhythm Gastrointestinal: normal inspection, soft Genitourinary: no CVA tenderness Musculoskeletal: swelling - left elbow Neurologic: normal inspection, alert, oriented x3 Psychiatric: normal inspection, judgement/insight normal Skin: normal inspection, normal color, no rash Lymphatic: normal inspection, no adenopathy Medical Decision Making PA Attestation all diagnosis and treatment plans were reviewed and discussed with my supervising physician Dr. Machuca Diagnostic Impression: Primary Impression: Bacterial conjunctivitis Additional Impression: Rheumatoid arthritis flare ER Course 33-year-old female with history of rheumatoid arthritis and ulcerative colitis, he does not have Currently under no treatment by system engineer here complaining of 3 days of rheumatoid arthritis flareup in her left elbow. Patient has been recently treated with prednisone for ulcerative colitis and has been taking Tylenol for pain with minimal relief rating the pain to 10 without radiation and denying Tingling. Patient further reports of 3 weeks of green/yellow discharge from right eye denies pain or pruritus has been rubbing her eyes on daily basis and wears eye makeup on daily basis. Chest pain, SOB, palpitations, blurred vision, loss of vision and all other associated symptoms. Ddx considered but are not limited to RA flare up, muscle strain, bacterial conjunctivitis, Vital signs: are WNL, pt. is afebrile H&PE are most consistent with RA flare up, bacterial conjunctivitis ORDERS: prednisone, ofloxacin ophth ED INTERVENTIONS: None required at this time. DISCHARGE: At this time pt. is stable for d/c to home. Will provide printed patient care instructions, and any necessary prescriptions. Care plan and follow up instructions have been discussed with the patient prior to discharge. f/u rheum Last Vital Signs Date Time Temp Pulse Resp B/P (MAP) Pulse Ox O2 Delivery O2 Flow Rate FiO2 12/03/18 19:08 98.2 88 17 139/92 96 Room Air Disposition: HOME, SELF-CARE Condition: Stable Scripts Prednisone* (PREDNISONE*) 10 Mg Tablet 10 MG ORAL BID for 5 Days, #10 TAB 0 Refills Prov: Deric Baptiste 12/03/18 Ofloxacin (OFLOXACIN) 5 Ml Drops 2 DROP OPHTHALM BID for 7 Days, #5 ML Prov: Deric Baptiste 12/03/18 Patient Instructions: Bacterial Conjunctivitis, [id number], Rheumatoid Arthritis Additional Instructions: see system engineer for further evaluation. Deric Baptiste Dec 03, 2018 19:30
[2018-12-03] MEDS ORDERED: OFLOXACIN5 ML OPHTHALM (19:33)
[2018-12-03] MEDS ORDERED: PREDNISONE10 MG ORAL (19:33)
[2018-12-03 19:51] VITALS: BP 136/65
--- NOTE | 2018-12-03 19:51 | NUR ---
ER DISCHARGE NOTE: Patient is cleared to be discharged per ERMD, pt is aox4, on room air, with stable vital signs. pt was given dc and prescription instructions, pt was able to verbalize understanding, pt id band removed. pt is able to ambulate with steady gait. pt took all belongings.
== END 2018-12-03 19:25 | disposition home or self-care (01) ==
LOC: EMR 19:23
DX: H10.89 Other conjunctivitis (principal); B96.89 Other specified bacterial agents as the cause of diseases classified elsewhere; M06.9 Rheumatoid arthritis, unspecified
CPT/HCPCS: 99282

== ENCOUNTER 2018-12-14 21:24 | Emergency (ER) | payer OTHER ==
[~2018-12-14] VITALS: Ht 170.2 cm; Wt 86.2 kg
[~2018-12-14 21:24] MED LIST changes: +OFLOXACIN5 ML OPHTHALM; +PREDNISONE10 MG ORAL
[2018-12-14 21:28] VITALS: BP 131/89
--- NOTE | 2018-12-14 21:28 | NUR ---
ED Nurse Note: Walk in patient presents with recurrent pain in the right eye pain 8/10, extremely watery. no disruption in visual acuity.
[2018-12-14] MEDS ORDERED: MEDROL DOSEPAK4 MG ORAL (22:27)
[2018-12-14 22:33] VITALS: BP 131/89
--- NOTE | 2018-12-14 22:33 | NUR ---
ED Nurse Note: Patient cleared for discharge by ERMD, verbalized understanding of discharge instructions, A&Ox4, ambulatory with steady gait. NO s/s of acute distress. departed with all belongings.
--- NOTE | 2018-12-14 23:50 | Emergency Room Report ---
History of Present Illness General Chief Complaint: Eye Problems Source: Patient Present Illness HPI Patient presents with complaints of tearing from the right eye Reports that there was some improvement from last visit However now for the past several days again started to have more tearing Patient felt that it was possibly allergic in nature Had taken some [id number] drops without much improvement Denies any chest pain denies any visual change Denies any headache Patient has history of ulcerative colitis Allergies: Coded Allergies: No Known Allergies (Unverified , 02/21/17) Patient History Past Medical History: see triage record Pertinent Family History: none Last Menstrual Period: 12/14/2018 Now: No Reviewed Nursing Documentation: PMH: Agreed; PSxH: Agreed Nursing Documentation-PMH Past Medical History: No History, Except For Hx Gastrointestinal Problems: Yes - ulcerative colitis Review of Systems All Other Systems: negative except mentioned in HPI Physical Exam Vital Signs Date Time Temp Pulse Resp B/P (MAP) Pulse Ox O2 Delivery O2 Flow Rate FiO2 12/14/18 21:28 97.9 97 16 131/89 97 Room Air Sp02 EP Interpretation: reviewed, normal General Appearance: well appearing, no apparent distress Head: normocephalic, atraumatic Eyes: bilateral eye PERRL, bilateral eye EOMI ENT: hearing grossly normal, normal pharynx, TMs + canals normal, uvula midline Neck: full range of motion, supple, no meningismus, no bony tend Respiratory: lungs clear, normal breath sounds, no rhonchi, no respiratory distress, no retraction, no accessory muscle use Cardiovascular #1: normal peripheral pulses, regular rate, rhythm, no edema, no gallop, no JVD, no murmur Gastrointestinal: normal bowel sounds, non tender, soft, no mass, no organomegaly, non-distended, no guarding, no hernia, no pulsatile mass, no rebound Musculoskeletal: normal inspection Neurologic: oriented x3, responsive, financial advisor III-XII nml as tested, motor strength/ tone normal, sensory intact Psychiatric: mood/affect normal Skin: normal color, no rash, warm/dry, palpation normal Lymphatic: normal inspection, no adenopathy Medical Decision Making Diagnostic Impression: Primary Impression: eye tearing Additional Impression: eye discharge ER Course Patient's eye exam is clear No obvious proptosis No obvious yellowish discharge Patient has complex medical history with autoimmune disorder There are multiple differentials and consideration However given the lack of any pain to the eye given the change of any visual effects patient is stable for initial conservative outpatient trial Last Vital Signs Date Time Temp Pulse Resp B/P (MAP) Pulse Ox O2 Delivery O2 Flow Rate FiO2 12/14/18 22:33 97.9 82 16 131/89 97 Room Air Status: unchanged Disposition: HOME, SELF-CARE Condition: Stable Scripts Methylprednisolone (Methylprednisolone*) 4MG Dspk 4 MG ORAL DIRECTED for 6 Days, #21 EA 0 Refills Day 1: Two tablets before breakfast, one after lunch, one after dinner, and two at bedtime. If started late in the day, take all six tablets at once or divide into two or three doses, unless otherwise directed by prescriber. Day 2: One tablet before breakfast, one after lunch, one after dinner, and two at bedtime Day 3: One tablet before breakfast, one after lunch, one after dinner, and one at bedtime Day 4: One tablet before breakfast, one after lunch, and one at bedtime Day 5: One tablet before breakfast and one at bedtime Day 6: One tablet before breakfast Prov: Juan Machuca DO 12/14/18 Referrals: Maddie DAMICO,REFERRING (PCP) Patient Instructions: Allergic Conjunctivitis, [id number], Viral Conjunctivitis Additional Instructions: Patient is provided with the discharge instructions notified to follow up with primary doctor in the next 2-3 days otherwise return to the er with any worsening symptoms. Please note that this report is being documented using DRAGON technology. This can lead to erroneous entry secondary to incorrect interpretation by the dictating instrument. Juan Machuca DO Dec 14, 2018 23:50
== END 2018-12-14 22:33 | disposition home or self-care (01) ==
LOC: EMR 22:00
DX: H57.89 Other specified disorders of eye and adnexa (principal)
CPT/HCPCS: 99282

== ENCOUNTER 2019-06-29 22:53 | Emergency (ER) | payer OTHER ==
[~2019-06-29] VITALS: Ht 170.2 cm; Wt 88.5 kg
[~2019-06-29 22:53] MED LIST changes: +MEDROL DOSEPAK4 MG ORAL
[2019-06-29 23:20] VITALS: BP 130/83
--- NOTE | 2019-06-29 23:20 | NUR ---
ED Nurse Note: Pt walked in c/o flu like sx- fever, cough, nasal congestion, wheezing, left earache, mid sternal chest pain worsen on coughing since yesterday 10pm, pt also reports phlegm with red blood in it. Alert, oriented. No SOB. Breathing even and unlabored. VSs.
[2019-06-30] MEDS ORDERED: PROMETHAZINE-C118 M1 ORAL (00:17)
[2019-06-30] MEDS ORDERED: IBUPROFEN600 MG ORAL (00:17)
[2019-06-30] MEDS ORDERED: AUGMENTIN 875-1 EAC1 ORAL (00:17)
--- NOTE | 2019-06-30 00:18 | Emergency Room Report ---
History of Present Illness General Chief Complaint: Flu Like Symptoms Source: Patient, Medical Record Present Illness HPI 33-year-old female with no past medical history. She has history of bronchitis requiring albuterol in the past. She presents with chief complaint of fever chills and sore throat. Onset for last 2 days. When she coughs sometimes she bring up some phlegm with blood in it. Pain is mostly in her throat. 8 out of 10. Worse with eating and swallowing. Cough is nonproductive nature. No nausea no vomiting. Does have some congestion. exertion makes her more tired. Rest made it better. Allergies: Coded Allergies: No Known Allergies (Unverified , 02/21/17) Patient History Past Medical History: see triage record, old chart reviewed Past Surgical History: none Pertinent Family History: none Social History: Denies: smoking Last Menstrual Period: pt on her period right now Now: No Immunizations: other Reviewed Nursing Documentation: PMH: Agreed; PSxH: Agreed Nursing Documentation-PMH Past Medical History: No History, Except For Hx Gastrointestinal Problems: Yes - ulcerative colitis Review of Systems Constitutional: Reports: fever Eye: Denies: eye pain, blurred vision ENT: Reports: nose congestion, throat pain; Denies: ear pain, throat swelling Respiratory: Reports: cough; Denies: shortness of breath Cardiovascular: Denies: chest pain, palpitations Gastrointestinal: Denies: abdominal pain, diarrhea, nausea, vomiting Musculoskeletal: Denies: back pain, joint pain Skin: Denies: rash Neurological: Denies: headache, numbness Endocrine: Denies: increased thirst, increased urine Hematologic/Lymphatic: Denies: easy bruising All Other Systems: negative except mentioned in HPI Physical Exam Vital Signs Date Time Temp Pulse Resp B/P (MAP) Pulse Ox O2 Delivery O2 Flow Rate FiO2 06/29/19 23:13 99.3 103 18 130/83 (99) 98 Room Air Vitals unremarkable Sp02 EP Interpretation: reviewed, normal General Appearance: well appearing, no apparent distress, alert Head: normocephalic, atraumatic Eyes: bilateral eye PERRL, bilateral eye EOMI ENT: hearing grossly normal, tonsillar swelling, pharyngeal erythema, tonsillar exudate Neck: full range of motion, supple, no meningismus Respiratory: chest non-tender, lungs clear, normal breath sounds Cardiovascular #1: regular rate, rhythm, no murmur Gastrointestinal: normal bowel sounds, non tender, no mass, no organomegaly, no bruit, non-distended Musculoskeletal: back normal, gait/station normal, normal range of motion Psychiatric: mood/affect normal Medical Decision Making Diagnostic Impression: Primary Impression: Pharyngitis, acute Qualified Codes: J02.9 - Acute pharyngitis, unspecified ER Course Patient presents with a tonsillitis/pharyngitis. Most likely viral in nature. No evidence of pneumonia. Could be strep. No evidence of peritonsillar abscess , Aayush angina or retropharyngeal abscess. Will discharge home. Last Vital Signs Date Time Temp Pulse Resp B/P (MAP) Pulse Ox O2 Delivery O2 Flow Rate FiO2 06/29/19 23:13 99.3 103 18 130/83 (99) 98 Room Air Status: unchanged Disposition: HOME, SELF-CARE Condition: Stable Scripts Codeine/Promethazine Hcl* (PROMETHAZINE-CODEINE SYRUP*) 118 Ml Syrup 5 ML ORAL Q6H PRN for For Cough, #118 ML 0 Refills Prov: Cesar Bearden MD 06/30/19 Ibuprofen* (MOTRIN*) 600 Mg Tablet 600 MG ORAL THREE TIMES A DAY, #30 TAB 0 Refills Prov: Cesar Bearden MD 06/30/19 Amoxicillin/Potassium Clav 875-125* (AUGMENTIN 875-125 TABLET*) 1 Each Tablet 1 TAB ORAL TWICE A DAY, #14 TAB Prov: eCsar Bearden MD 06/30/19 Referrals: Maddie DAMICO,REFERRING (PCP) Additional Instructions: Rest. Increase fluids. Follow-up with your doctor in 7 days. Return if worse. Cesar Bearden MD Jun 30, 2019 00:18
[2019-06-30 00:23] VITALS: BP 130/83
--- NOTE | 2019-06-30 00:23 | NUR ---
ED Nurse Note: Pt cleared by ERMD for discharge. DC instructions/prescription was given and explained to pt and verbalized understanding of teachings. All medical deviecs such as ID band removed. Pt is AAO x4, ambulatory and left with all personal belongings.
== END 2019-06-30 00:23 | disposition home or self-care (01) ==
LOC: EMR 23:27
DX: J02.9 Acute pharyngitis, unspecified (principal)
CPT/HCPCS: 99282; J7512

== ENCOUNTER 2020-09-06 01:51 | Emergency (ER) | payer OTHER ==
[~2020-09-06] VITALS: Ht 170.2 cm; Wt 97.5 kg
[~2020-09-06 01:51] MED LIST changes: +PROMETHAZINE-C118 M1 ORAL
[2020-09-06 02:08] VITALS: BP 122/85
[2020-09-06] MEDS ORDERED: Neosporin Oint Ud Pkt TOPIC ONE (02:15)
[2020-09-06] MEDS ORDERED: MUPIROCIN22 GM TOPIC (02:18)
[2020-09-06] MEDS ORDERED: PREDNISONE20 MG ORAL (02:18)
--- NOTE | 2020-09-06 02:18 | Emergency Room Report ---
History of Present Illness General Chief Complaint: Laceration Source: Patient Present Illness HPI a 35-year-old female with a history ulcerative colitis. She presents with chief complaint of laceration to her right foot. Also with abdominal pain and diarrhea. Laceration right foot occur a month ago. Is still occasionally hurting her. Specially when she walks. She denies any fever chills but denies any nausea vomiting or foreign body. She also started having diarrhea 2 days ago. Has abdominal pain is crampy in nature. This is similar to her previous episode when she get flareup from her ulcerative colitis. When this happens she usually takes short course of steroid. Denies any trauma. No blood in her stool. No fever or chills. No nausea or vomiting. Allergies: Coded Allergies: No Known Allergies (Unverified , 02/21/17) COVID-19 Screening Contact w/high risk pt: No Experienced COVID-19 symptoms?: No COVID-19 Testing performed APPLICATION SECURITY DEVELOPER: No Patient History Past Medical History: see triage record, old chart reviewed Past Surgical History: other Pertinent Family History: none Social History: Denies: smoking Last Menstrual Period: 08/2020 Now: No Immunizations: other Reviewed Nursing Documentation: PMH: Agreed; PSxH: Agreed Nursing Documentation-PMH Hx Gastrointestinal Problems: Yes - ulcerative colitis Review of Systems Eye: Denies: eye pain, blurred vision ENT: Denies: ear pain, nose congestion, throat swelling Respiratory: Denies: cough, shortness of breath Cardiovascular: Denies: chest pain, palpitations Gastrointestinal: Reports: abdominal pain, diarrhea; Denies: nausea, vomiting Musculoskeletal: Denies: back pain, joint pain Skin: Denies: rash Neurological: Denies: headache, numbness Endocrine: Denies: increased thirst, increased urine Hematologic/Lymphatic: Denies: easy bruising All Other Systems: negative except mentioned in HPI Physical Exam Vital Signs Date Time Temp Pulse Resp B/P (MAP) Pulse Ox O2 Delivery O2 Flow Rate FiO2 09/06/20 01:55 98.4 85 16 124/86 (99) 98 Room Air Vitals normal Sp02 EP Interpretation: reviewed, normal General Appearance: well appearing, no apparent distress, alert Head: normocephalic, atraumatic Eyes: bilateral eye PERRL, bilateral eye EOMI ENT: hearing grossly normal, normal pharynx Neck: full range of motion, supple, no meningismus Respiratory: chest non-tender, lungs clear, normal breath sounds Cardiovascular #1: regular rate, rhythm, no murmur Gastrointestinal: normal bowel sounds, non tender, no mass, no organomegaly, no bruit, non-distended Musculoskeletal: back normal, normal range of motion, gait/station normal, other - Right foot: On the lateral aspect just above her heel there is a 1 cm skin cracking. This is over the callus. There is no redness or foreign body. Psychiatric: mood/affect normal Medical Decision Making Diagnostic Impression: Primary Impression: Laceration of foot Qualified Codes: S91.311A - Laceration without foreign body, right foot, initial encounter Additional Impression: Diarrhea Qualified Codes: R19.7 - Diarrhea, unspecified ER Course Patient with slow healing laceration to her foot. The problem is because is over her callus. There is no evidence of any infection. Her diarrhea could be from a viral illness versus flareup of her colitis. No evidence of any acute abdomen. Told her to hold off filling the prescription for steroid for 3 to 5 days. If symptoms continue, she can go ahead and take the steroid. Last Vital Signs Date Time Temp Pulse Resp B/P (MAP) Pulse Ox O2 Delivery O2 Flow Rate FiO2 09/06/20 02:08 98.6 80 16 122/85 98 Room Air Status: unchanged Disposition: HOME, SELF-CARE Condition: Stable Scripts Prednisone* (PREDNISONE*) 20 Mg Tablet 40 MG ORAL DAILY, #10 TAB Prov: Cesar Bearden MD 09/06/20 Mupirocin* (MUPIROCIN*) 22 Gm Oint...g. 1 APPLIC TOPIC THREE TIMES A DAY, #22 GM Prov: Cesar Bearden MD 09/06/20 Referrals: NON PHYSICIAN (PCP) Patient Instructions: Nonsutured Laceration Care Additional Instructions: Wound clean. Follow-up with your doctor in 7 days. Hold off resume for 3 days. If still with diarrhea, go ahead and take steroid. Cesar Bearden MD Sep 06, 2020 02:18
[2020-09-06 02:22] VITALS: BP 120/87
== END 2020-09-06 02:21 | disposition home or self-care (01) ==
LOC: EMR 02:13
DX: S91.311A Laceration without foreign body, right foot, initial encounter (principal); R19.7 Diarrhea, unspecified; X58.XXXA Exposure to other specified factors, initial encounter; Y93.9 Activity, unspecified; Y92.9 Unspecified place or not applicable
CPT/HCPCS: 99282